=== PATIENT | female | born 1985 | race Caucasian/White ===

== ENCOUNTER 2022-11-11 15:51 | Emergency (ER) | payer OTHER, SELFPAY ==
--- OUTSIDE RECORDS SUMMARY | 2022-11-11 15:58 | XMS REPORT | Continuity of Care Document ---
:1985 Author Organization [facility] t Address [address] [place] [address] Care Team Providers Name Role Phone Nunu Morejon MD Primary Care Physician TIFF SIMPSON Attending Clinician Unavailable SHIV PROCTOR Attending Clinician Unavailable CHINEDU MYERS Attending Clinician Unavailable OLIVER CARR Attending Clinician Unavailable KEVIN HERNÁNDEZ Attending Clinician Unavailable LUCAS FORTE Attending Clinician Unavailable CASE VALDEZ Attending Clinician Unavailable SHAHNAZ GREENE Attending Clinician Unavailable WILLIE SIMENTAL Attending Clinician Unavailable Doctor Unassigned, [place] Attending Clinician Unavailable Case Valdez MD Attending Clinician [facility] Pain Procedure Attending Clinician Unavailable Nola Santoyo Attending Clinician Unavailable Shiv Proctor MD Attending Clinician EDGARDO BLACK Attending Clinician Unavailable TIFFANY GAGNON Attending Clinician Unavailable NAKUL VINSON Attending Clinician Unavailable Antonia Puri MD Attending Clinician Bossman PT, Nisa N Attending Clinician Unavailable Alis JOELRolandia Attending Clinician ALLEN MOORE Attending Clinician Unavailable ALLEN MOORE Attending Clinician Unavailable OLIVER CARR NP Attending Clinician Unavailable JEANA BAPTISTE D.O. Attending Clinician Unavailable SEFERINO BRYANT P.A. Attending Clinician Unavailable ABENA GRIFFIN M.D. Attending Clinician Unavailable OLAYINKA LU M.D. Attending Clinician Unavailable BELLO GONZÁLES M.D. Attending Clinician Unavailable SHIV PROCTOR Admitting Clinician Unavailable Nola Santoyo Admitting Clinician Unavailable CASE VALDEZ Admitting Clinician Unavailable Payers Payer Name Policy Type Policy Number Effective Date Expiration Date Shannon horne [facility] [id number] 2019 00:00:00 [facility] [id number] 2011 CHOICE MEDICAID 00:00:00 Problems Condition Condition Condition Status Onset Resolution Last Treating Co mments Source Name Details Category Date Date Treatment Clinician Date Elevated Elevated Disease Active 2018-10 [facility] C-reactive C-reactive 0-27 He alth protein protein 00:00: 00 Elevated Elevated Disease Active 2018-10 [facility] erythrocyt erythrocyt 0-27 He alth e e 00:00: sedimentat sedimentat 00 ion rate ion rate Seborrheic Seborrheic Disease Active U T dermatitis dermatitis 9-06 He alth of scalp of scalp 00:00: 00 Cervical Cervical Disease Active 2017-10 Unive rs radiculopa radiculopa 2-05 it y of thy [place] C7 [place] C7 [place] Spinal Spinal Disease Active 2017-10 Univers stenosis stenosis 2-05 ity of in in 00:00: [place] cervical cervical 00 Medica l region region Branch Cervical Cervical Disease Active 2017-10 Unive rs disc disc 2-05 ity of disorder disorder 00:00: [place] at C6-C7 at C6-C7 00 Medica l level with level with Br anch radiculopa radiculopa thy thy Blood Blood Disease Active 2017-10 [facility] pressure pressure 1-08 Health elevated elevated 00:00: without without 00 history of history of HTN HTN Cervical Cervical Disease Active 2017-10 UT radiculopa radiculopa 1-08 He alth thy thy 00:00: 00 GERD GERD Disease Active UT (gastroeso (gastroeso 07-17 He alth phageal phageal 00:00: reflux reflux 00 disease) disease) Herniated Herniated Disease Active UT cervical cervical 07-17 Health disc disc 00:00: without without 00 myelopathy myelopathy Adult ADHD Adult ADHD Disease Active U T 9 Health 00:00: 00 Anxiety Anxiety Disease Active UT and and 07-17 Health depression depression 00:00: 00 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 07-17 Heal th 00:00: 00 Abnormal Abnormal Disease Active Unive rs thyroid thyroid 06-17 ity of exam exam 00:00: [place] [facility] Abnormal Abnormal Disease Active Unive rs thyroid thyroid 06-17 ity of exam exam 00:00: [place] [facility] Hirsutism Hirsutism Disease Active Uni vers 8-27 ity of 00:00: [place] [facility] Irregular Irregular Disease Active Uni vers menstrual menstrual 06-17 ity of cycle cycle 00:00: [place] [facility] Patient Patient Disease Active [facility] desires desires 8 [place] of [place] History of History of Disease Active U nivers hypertensi hypertensi 8 it y of on on 00:00: [place] [facility] History of History of Disease Active U nivers depression depression 06-17 it y of 00:00: [place] [facility] History of History of Disease Active U nivers anxiety anxiety 06-17 ity of 00:00: [place] [facility] History of History of Disease Active U nivers ADHD ADHD 06-17 ity of 00:00: [place] [facility] Morbid Morbid Disease Active Univers obesity obesity 2- ity of 00:00: [place] [facility] IBS IBS Disease Active UT (irritable (irritable 05-17 He alth bowel bowel 00:00: syndrome) syndrome) 00 Diarrhea Diarrhea Problem Active UT Physici ans Constipati Constipati Problem Active U T on on Physici ans Abnormal Abnormal Problem Active UT urinalysis urinalysis Ph ysici ans Abdominal Abdominal Problem Active UT pain pain Physici ans Limb pain Limb pain Problem Active UT Physici ans Herniated Herniated Problem Active UT cervical cervical Physic i disc disc ans without without myelopathy myelopathy Lymphadeno Lymphadeno Problem Active U T stephanie, stephanie, Physici cervical cervical ans Meralgia Meralgia Problem Active UT parestheti parestheti Ph ysici ca of left ca of left an s side side Bulging of Bulging of Problem Active U T cervical cervical Physic i interverte interverte an s bral disc bral disc Back spasm Back spasm Problem Active U T Physici ans Need for Need for Problem Active UT influenza influenza Phys ici vaccinatio vaccinatio an s n n Contact Contact Problem Active UT dermatitis dermatitis Ph ysici ans Tinea Tinea Problem Active UT versicolor versicolor Ph ysici ans Obesity, Obesity, Problem Active UT Class I, Class I, Physic i BMI BMI ans 30-34.9 30-34.9 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 Physic i centrifugu centrifugu an s m m Allergies, Adverse Reactions, Alerts Allergy Allergy Status Severity Reaction(s) Onset Inactive Treating Comm ents Source Name Type Date Date Clinician Wheat Allergy Active 2020-10 UT Bran to 0-21 Health substanc 00:00: e 00 wheat DA Active [facility] 5-09 Clear 00:00: Gutierrez 00 [facility] Peanut Propensi Active Unknown - Unknown Univ ers ty to See comments 11-22 reaction it y of adverse 00:00: [place] reaction 00 Medical s Branch Wheat Propensi Active Rash Univers ty to 11-22 ity of adverse 00:00: [place] reaction 00 Medical s [place] PEANUT DRUG Active Unknown-Cmnt Univ ers INGREDI 11-22 ity of 00:00: [place] 00 Medical [place] WHEAT DRUG Active Diarrhea Univers INGREDI 11-22 ity of 00:00: [place] 00 Medical Branch Peanuts allergy Active UT to Physici substanc ans e Wheat allergy Active UT to Physici substanc ans e Family History Family Member Diagnosis Comments Start Date Stop Date Source natural son Family history of asthma [facility] Mother FHx: pancreatic cancer [facility] Mother Family history of malignant [facility] neoplasm Mother Family history of seizures [facility] Mother Family history of diabetes [facility] mellitus Father Family history of [facility] hypertension Father Family history of kidney [facility] disease Father Family history of [facility] cerebrovascular accident (CVA) Sister Family history of Anxiety [facility] Social History Social Habit Start Date Stop Date Quantity Comments Source Exposure to Not sure University of SARS-CoV-2 [place] [facility] (event) Branch History of Cigarette Smoker Universi ty of tobacco use [facility] Tobacco use and 2021-10-31 2021-10-31 Smokeless tobacco [facility] exposure 00:00:00 00:00:00 non-user Alcohol intake 2021-10-31 2021-10-31 Current drinker UT He alth 00:00:00 00:00:00 of alcohol (finding) History SDOH 2021-10-31 2021-10-31 2 [facility] Alcohol Frequency 00:00:00 00:00:00 History SDOH 2021-10-31 2021-10-31 1 [facility] Alcohol Std 00:00:00 00:00:00 Drinks History SDCO 2021-10-31 2021-10-31 1 [facility] Alcohol Binge 00:00:00 00:00:00 Alcohol Comment 2021-10-31 2021-10-31 socially [facility] 00:00:00 00:00:00 Tobacco Comment 2018-06-14 2018-06-14 stopped 10/2017, Uni versity of 00:00:00 00:00:00 using ecig [facility] Sex Assigned At [birth year] [facility] 00:00:00 00:00:00 Smoking Status Start Date Stop Date Source Former smoker [facility] Smoker. current status unknown [facility] Tobacco smoking consumption unknown [facility] Never smoked tobacco [facility] Medications Ordered Filled Start Stop Current Ordering Indication Dosage Frequency Signature Comments Components Source Medication Medication Date Date Medication? Clinician (SIG) Name Name fluticasone 2022- No [id number] 2{spray QD Administer UT (Flonase) 10-31 } 2 sprays Healt h 50 MCG/ACT 00:00: 05:59 into each nasal spray 00 :00 nostril 1 (one) time each day. Shake gently. Before first use, prime pump. After use, clean tip and replace cap. benzonatate 2021- No [id number] 200mg [id number] Take 1 UT (Tessalon) 10-31 [id number] capsule Health 200 MG 00:00: 05:59 3D (200 mg capsule 00 :00 total) by mouth 3 (three) times a day if needed for cough. Do not crush or chew. traZODone Yes 50mg Take 50 mg UT (Desyrel) 1-08 by mouth Health 50 MG 00:00: every tablet 00 night. Vyvanse 60 2020-10 Yes 60mg Take 60 mg U T MG capsule 1-30 by mouth 1 Hea lth 00:00: (one) time 00 each day in the morning. LORazepam 2020-10 Yes 2mg QD Take 2 mg UT (Ativan) 2 1-30 by mouth 1 Hea lth MG tablet 00:00: (one) time 00 each day. esomeprazol 2020-10 Yes UT e (NexIUM 0-21 Health 24HR) 20 MG 16:08: DR capsule 08 lisdexamfet 2020-10 Yes UT amine 0-21 Health (Vyvanse) 16:08: 10 MG 08 capsule esomeprazol 2020-10 Yes UT e (NexIUM 0-21 Health 24HR) 20 MG 16:08: DR capsule 08 lisdexamfet 2020-10 Yes UT amine 0-21 Health (Vyvanse) 16:08: 10 MG 08 capsule ondansetron Yes UT ODT 9-29 Health (Zofran-ODT 00:00: ) 4 MG 00 disintegrat ing tablet gabapentin Yes UT (Neurontin) 9-29 Health 300 MG 00:00: capsule 00 methocarbam Yes UT ol 6-30 Health (Robaxin) 00:00: 500 MG 00 tablet gabapentin Yes UT (Neurontin) 6-30 Health 400 MG 00:00: capsule 00 GABAPENTIN Yes [id number] TAKE ONE Univers 400 mg 6-30 9102 CAPSULE BY ity of capsule 00:00: MOUTH [place] 00 THREE Medical TIMES A Branch DAY GABAPENTIN Yes [id number] TAKE ONE Univers 400 mg 6-30 9102 CAPSULE BY ity of capsule 00:00: MOUTH [place] 00 THREE Medical TIMES A Branch DAY acetaminoph Yes UT en-codeine 4-21 Health (Tylenol 00:00: #3) 300-30 00 MG tablet METHOCARBAM Yes [id number] TAKE 1 AND Univers OL 500 mg 4-21 9102 1/2 TABLET ity of tablet 00:00: BY MOUTH [place] [address] THREE Medical TIMES A Branch DAY NEEDED FOR PAIN (SCALE 7-10) METHOCARBAM 1-0 Yes [id number] TAKE 1 AND Univers OL 500 mg 4-21 9102 1/2 TABLET ity of tablet 00:00: BY MOUTH [place] THREE Medical TIMES A Branch DAY NEEDED FOR PAIN (SCALE 7-10) METHOCARBAM 1-0 Yes [id number] TAKE 1 AND Univers OL 500 mg 4-21 9102 1/2 TABLET ity of tablet 00:00: BY MOUTH [place] THREE Medical TIMES A Branch DAY NEEDED FOR PAIN (SCALE 7-10) METHOCARBAM 2020-0 Yes [id number] TAKE 1 AND Univers OL 500 mg 4-21 9102 1/2 TABLET ity of tablet 00:00: BY MOUTH [place] THREE Medical TIMES A Branch DAY NEEDED FOR PAIN (SCALE 7-10) METHOCARBAM 2020-0 Yes [id number] TAKE 1 AND Univers OL 500 mg 4-21 9102 1/2 TABLET ity of tablet 00:00: BY MOUTH [place] THREE Medical TIMES A Branch DAY NEEDED FOR PAIN (SCALE 7-10) METHOCARBAM 2020-0 Yes [id number] TAKE 1 AND Univers OL 500 mg 4-21 9102 1/2 TABLET ity of tablet 00:00: BY MOUTH [place] THREE Medical TIMES A Branch DAY NEEDED FOR PAIN (SCALE 7-10) METHOCARBAM 1-0 Yes [id number] TAKE 1 AND Univers OL 500 mg 4-21 9102 1/2 TABLET ity of tablet 00:00: BY MOUTH [place] [address] THREE Medical TIMES A Branch DAY NEEDED FOR PAIN (SCALE 7-10) acetaminoph 2020-2020- No 2745 1{tbl} Take 1 U nivers en-codeine 02-09 tablet by ity of (TYLENOL-CO 00:00: 04:59 mouth [facility] shannon DENICK #3) 00 :00 every 6 Medical 300-30 mg (six) Branch tablet hours as needed for Pain (scale 7-10) for up to 7 days. Indication s: chronic pain acetaminoph 2020-0 2020- No 2745 1{tbl} Take 1 U nivers en-codeine 02-09 tablet by ity of (TYLENOL-CO 00:00: 04:59 [place] DEINE #3) 00 :00 every 6 Medical 300-30 mg (six) Branch tablet hours as needed for Pain (scale 7-10) for up to 7 days. Indication s: chronic pain acetaminoph 2020- No 2745 1{tbl} Take 1 U nivers en-codeine 02-09 tablet by ity of (TYLENOL-CO 00:00: 04:59 mouth [place] DEINE #3) 00 :00 every 6 Medical 300-30 mg (six) Branch tablet hours as needed for Pain (scale 7-10) for up to 7 days. Indication s: chronic pain lidocaine 2019-10- No 10mL Univers 1% (PF) 12-14 ity of (XYLOCAINE) 16:15: 15:19 [place] injection 00 :00 Medical 10 mL Branch iohexoL 2019-10- No 3mL Univers (OMNIPAQUE 12-14 ity of 300-50 mL)) 16:15: 15:18 [place] injection 3 00 :00 Medical mL Branch methylPREDN 2019-10- No 40mg Unive rs ISolone 12-14 ity of acetate 16:15: 15:19 [place] (DEPO-MEDRO 00 :00 Medical L) Branch injection 40 mg NaCl 0.9% 2019-10- No 4mL Univers (NS) 12-14 ity of injection 4 16:15: 15:19 [place] mL 00 :00 Medical Branch NaCl 0.9% 2019-10- No 4mL 4 mL, Univer s (NS) 12-14 Infiltrati ity of injection 4 16:15: 15:19 on, ONCE, [place] mL 00 :00 1 dose, Medical Wed Branch 10/13/20 at 1015, Routine methylPREDN 2019-10- No 40mg 40 mg, Uni vers ISolone 12-14 Intramuscu ity o f acetate 16:15: 15:19 lar, ONCE, [place] (DEPO-MEDRO 00 :00 1 dose, Medic al L) Wed Branch injection 10/13/20 40 mg at 1015, Routine iohexoL 2019-10- No 3mL 3 mL, Univers (OMNIPAQUE -13 10- Injection, it y of 300-50 mL)) 16:15: 15:18 ONCE, 1 [place] 3 [place] :[place] dose, Wed Med ical mL 10/13/20 Branch at 1015, Routine lidocaine 2019- 2020- No 10mL 10 mL, Unive rs 1% (PF) 12-14- Infiltrati ity o f (XYLOCAINE) 16:15: 15:19 on, ONCE, [place] injection 00 :00 1 dose, Medical 10 mL Wed Branch 10/13/20 at 1015, Routine lidocaine 2019- 2020- No 10mL Univers 1% (PF) 12-14 ity of (XYLOCAINE) 16:15: 15:19 [place] injection 00 :00 Medical 10 mL Branch iohexoL 2019- 2020- No 3mL Univers (OMNIPAQUE 12-14- ity of 300-50 mL)) 16:15: 15:18 [place] injection 3 00 :00 Medical mL Branch methylPREDN 2019-10 2020- No 40mg Unive rs ISolone 12-14 ity of acetate 16:15: 15:19 [place] (DEPO-MEDRO 00 :00 Medical L) Branch injection 40 mg NaCl 0.9% 2019-10 2020- No 4mL Univers (NS) 12-14 ity of injection 4 16:15: 15:19 [place] mL 00 :00 Medical Branch NaCl 0.9% 2019-10 2020- No 4mL 4 mL, Univer s (NS) 12-14 Infiltrati ity of injection 4 16:15: 15:19 on, ONCE, [place] mL 00 :00 1 dose, Medical Wed Branch 10/13/20 at 1015, Routine methylPREDN 2019-10 2020- No 40mg 40 mg, Uni vers ISolone 12-14 Intramuscu ity o f acetate 16:15: 15:19 lar, ONCE, [place] (DEPO-MEDRO 00 :00 1 dose, Medic al L) Wed Branch injection 10/13/20 40 mg at 1015, Routine iohexoL 2019- 2020- No 3mL 3 mL, Univers (OMNIPAQUE 12-14- Injection, it y of 300-50 mL)) 16:15: 15:18 ONCE, 1 [place] 3 00 :[place] dose, Wed Med ical mL 10/13/20 Branch at 1015, Routine lidocaine 2019- 2020- No 10mL 10 mL, Unive rs 1% (PF) 12-14 Infiltrati ity o f (XYLOCAINE) 16:15: 15:19 on, ONCE, [place] injection 00 :00 1 dose, Medical 10 mL Wed Branch 10/13/20 at 1015, Routine gabapentin 2020-1 Yes [id number] 400mg Take 1 Univers 400 mg 2-02 9102 capsule by ity of capsule 00:00: mouth 3 [place] (three) Medical times Branch daily. gabapentin 2020-1 Yes [id number] 400mg Take 1 Univers 400 mg 2-02 9102 capsule by ity of capsule 00:00: mouth 3 (three) Medical times Branch daily. gabapentin 2020-1 Yes [id number] 400mg Take 1 Univers 400 mg 2-02 9102 capsule by ity of capsule 00:00: mouth 3 (three) Medical times Branch daily. gabapentin 2020-1 Yes [id number] 400mg Take 1 Univers 400 mg 2-02 9102 capsule by ity of capsule 00:00: mouth 3 [place] (three) Medical times Branch daily. gabapentin 2020-1 Yes [id number] 400mg Take 1 Univers 400 mg 2-02 9102 capsule by ity of capsule 00:00: mouth 3 (three) Medical times Branch daily. gabapentin 2020-1 Yes [id number] 400mg Take 1 Univers 400 mg 2-02 9102 capsule by ity of capsule 00:00: mouth 3 [place] (three) Medical times Branch daily. gabapentin 2020-1 Yes [id number] 400mg Take 1 Univers 400 mg 2-02 9102 capsule by ity of capsule 00:00: mouth 3 [place] (three) Medical times Branch daily. gabapentin 2020-1 Yes [id number] 400mg Take 1 Univers 400 mg 2-02 9102 capsule by ity of capsule 00:00: mouth 3 [place] (three) Medical times Branch daily. gabapentin 2020-1 Yes [id number] 400mg Take 1 Univers 400 mg 2-02 9102 capsule by ity of capsule 00:00: mouth 3 [place] 00 (three) Medical times Branch daily. gabapentin 2020-1 Yes [id number] 400mg Take 1 Univers 400 mg 2-02 9102 capsule by ity of capsule 00:00: mouth 3 [place] 00 (three) Medical times Branch daily. gabapentin 2020- Yes [id number] 400mg Take 1 Univers 400 mg 2-02 9102 capsule by ity of capsule 00:00: mouth 3 [place] 00 (three) Medical times Branch daily. gabapentin 2020-1 Yes [id number] 400mg Take 1 Univers 400 mg 2-02 9102 capsule by ity of capsule 00:00: mouth 3 [place] 00 (three) Medical times Branch daily. gabapentin 2019-2020- No [id number] 400mg Take 1 Univers 400 mg 2-02 - 9102 capsule by ity of capsule 00:00: 00:00 mouth 3 [place] 00 :00 (three) Medical times Branch daily. GABAPENTIN 2020-0 Yes [id number] TAKE ONE Univers 400 mg 9-21 9102 CAPSULE BY ity of capsule 00:00: MOUTH [place] 00 THREE Medical TIMES A Branch DAY GABAPENTIN 2020-0 Yes [id number] TAKE ONE Univers 400 mg 9-21 9102 CAPSULE BY ity of capsule 00:00: MOUTH [place] 00 THREE Medical TIMES A Branch DAY GABAPENTIN 2020-0 2020- No [id number] TAKE ONE Univers 400 mg 9-21 12- 9102 CAPSULE BY ity of capsule 00:00: 00:00 MOUTH [place] 00 :00 THREE Medical TIMES A Branch DAY GABAPENTIN 2020-0 2020- No [id number] TAKE ONE Univers 400 mg 9-21 12- 9102 CAPSULE BY ity of capsule 00:00: 00:00 MOUTH [place] 00 :00 THREE Medical TIMES A Branch DAY traZODone 2020-0 Yes Univers 50 mg 9-03 ity of tablet 00:00: [place] 00 Medical Branch traZODone 2020-0 Yes Univers 50 mg 9-03 ity of tablet 00:00: [place] 00 Medical Branch traZODone 2020-0 Yes Univers 50 mg 9-03 ity of tablet 00:00: [place] 00 Medical Branch traZODone 2020-0 Yes Univers 50 mg 9-03 ity of tablet 00:00: [place] 00 Medical Branch traZODone 2020-0 Yes Univers 50 mg 9-03 ity of tablet 00:00: [place] 00 Medical Branch traZODone 2020-0 Yes Univers 50 mg 9-03 ity of tablet 00:00: [place] 00 Medical Branch traZODone 2020-0 Yes Univers 50 mg 9-03 ity of tablet 00:00: [place] 00 Medical Branch traZODone 2020-0 Yes Univers 50 mg 9-03 ity of tablet 00:00: [place] [facility] traZODone 2020-0 Yes Univers 50 mg 9-03 ity of tablet 00:00: [place] [facility] traZODone 2020-0 Yes Univers 50 mg 9-03 ity of tablet 00:00: [place] [facility] traZODone 2020-0 Yes Univers 50 mg 9-03 ity of tablet 00:00: [place] [facility] traZODone 2020-0 Yes Univers 50 mg 9-03 ity of tablet 00:00: [place] [facility] traZODone 2020-0 Yes Univers 50 mg 9-03 ity of tablet 00:00: [place] [facility] traZODone 2020-0 Yes Univers 50 mg 9-03 ity of tablet 00:00: [place] [facility] traZODone 2020-0 Yes Univers 50 mg 9-03 ity of tablet 00:00: [place] [facility] tiZANidine 2020-0 Yes [id number] 2mg Take 1 Univers 2 mg 8-05 capsule by ity of capsule 00:00: mouth 3 [place] [facility]) Medical times [place] daily. tiZANidine 2020-0 Yes [id number] 2mg Take 1 Univers 2 mg 8-05 capsule by ity of capsule 00:00: mouth 3 [place] [facility]) Medical times [place] daily. tiZANidine 2020-0 Yes [id number] 2mg Take 1 Univers 2 mg 8-05 capsule by ity of capsule 00:00: mouth 3 [place] [facility]) Medical times [place] daily. tiZANidine 2020-0 Yes [id number] 2mg Take 1 Univers 2 mg 8-05 capsule by ity of capsule 00:00: mouth 3 [place] [facility]) Medical times [place] daily. tiZANidine 2020-0 Yes [id number] 2mg Take 1 Univers 2 mg 8-05 capsule by ity of capsule 00:00: mouth 3 [place] [facility]) Medical times Branch daily. tiZANidine 2020-0 Yes [id number] 2mg Take 1 Univers 2 mg 8-05 capsule by ity of capsule 00:00: mouth 3 [place] [facility]) Medical times Branch daily. tiZANidine 2020-0 Yes [id number] 2mg Take 1 Univers 2 mg 8-05 capsule by ity of capsule 00:00: mouth (three) Medical times Branch daily. tiZANidine 2020-0 Yes [id number] 2mg Take 1 Univers 2 mg 8-05 capsule by ity of capsule 00:00: mouth 3 (three) Medical times Branch daily. tiZANidine 2020-0 Yes [id number] 2mg Take 1 Univers 2 mg 8-05 capsule by ity of capsule 00:00: mouth (three) Medical times Branch daily. tiZANidine 2020-0 Yes [id number] 2mg Take 1 Univers 2 mg 8-05 capsule by ity of capsule 00:00: mouth (three) Medical times Branch daily. tiZANidine 2020-0 Yes [id number] 2mg Take 1 Univers 2 mg 8-05 capsule by ity of capsule 00:00: mouth (three) Medical times Branch daily. tiZANidine 2020-0 Yes [id number] 2mg Take 1 Univers 2 mg 8-05 capsule by ity of capsule 00:00: [place] (three) Medical times Branch daily. tiZANidine 2020-0 Yes [id number] 2mg Take 1 Univers 2 mg 8-05 capsule by ity of capsule 00:00: mouth (three) Medical times Branch daily. tiZANidine 2020-0 Yes [id number] 2mg Take 1 Univers 2 mg 8-05 capsule by ity of capsule 00:00: mouth (three) Medical times Branch daily. tiZANidine 2020-0 Yes [id number] 2mg Take 1 Univers 2 mg 8-05 capsule by ity of capsule 00:00: mouth (three) Medical times Branch daily. tiZANidine 2020-0 Yes [id number] 2mg Take 1 Univers 2 mg 8-05 capsule by ity of capsule 00:00: mouth 3 (three) Medical times Branch daily. tiZANidine 2020-0 Yes [id number] 2mg Take 1 Univers 2 mg 8-05 capsule by ity of capsule 00:00: mouth 3 (three) Medical times Branch daily. tiZANidine 2020-0 Yes [id number] 2mg Take 1 Univers 2 mg 8-05 capsule by ity of capsule 00:00: mouth 3 00 (three) Medical times Branch daily. tiZANidine 2020-0 Yes [id number] 2mg Take 1 Univers 2 mg 8-05 capsule by ity of capsule 00:00: mouth 3 (three) Medical times Branch daily. methylPREDN 2020-0 2020- No 40mg Unive rs ISolone 6-25 06-25 ity of acetate 15:15: 14:40 [place] (DEPO-MEDRO 00 :00 Medical L) Branch injection 40 mg iohexol 2020-0 2020- No 3mL Univers (OMNIPAQUE 6-25 06-25 ity of 300-50 mL)) 15:15: 14:40 [place] injection 3 00 :00 Medical mL Branch NaCl 0.9% 2020-0 2020- No 4mL Univers (NS) -15 04-25 ity of injection 4 15:15: 14:40 [place] mL 00 :00 Medical Branch NaCl 0.9% 2020-0 2020- No 4mL 4 mL, Univer s (NS) 04-15-25 Infiltrati ity of injection 4 15:15: 14:40 on, ONCE, [place] mL 00 :00 1 dose, Medical [place] Branch 04/15/20 at 1015, Routine iohexol 2020-0 2020- No 3mL 3 mL, Univers (OMNIPAQUE 6-25 06-25 Injection, it y of 300-50 mL)) 15:15: 14:40 [place]CE, 1 [place] injection 3 00 :00 dose, [place] Med ical mL 04/15/ at Branch 1015, Routine methylPREDN 2020-0 2020- No 40mg 40 mg, Uni vers ISolone -25 -25 Intramuscu ity o f acetate 15:15: 14:40 lar, ONCE, [facility] (DEPO-MEDRO 00 :00 1 dose, Medic al L) [place] Branch injection 04/15/ at 40 mg 1015, Routine methylPREDN 2020-0 2020- No 40mg Unive rs ISolone 6-25 06-25 ity of acetate 15:15: 14:40 [place] (DEPO-MEDRO 00 :00 Medical L) Branch injection 40 mg iohexol 2020-0 2020- No 3mL Univers (OMNIPAQUE 6-25 06-25 ity of 300-50 mL)) 15:15: 14:40 [place] injection 3 00 :00 Medical mL Branch NaCl 0.9% 2019-0 2020- No 4mL Univers (NS) 04-15 ity of injection 4 15:15: 14:40 [place] mL 00 :00 Medical Branch NaCl 0.9% 2019-0 2020- No 4mL 4 mL, Univer s (NS) 04-15 Infiltrati ity of injection 4 15:15: 14:40 on, ONCE, [place] mL 00 :00 1 dose, Medical [place] Branch 04/15/20 at 1015, Routine iohexol 2019-2019- No 3mL 3 mL, Univers (OMNIPAQUE 04-15 Injection, it y of 300-50 mL)) 15:15: 14:40 [place]CE, 1 [place] injection 3 00 :00 dose, [place] Med ical mL 04/15/20 at Branch 1015, Routine methylPREDN 2019-2019- No 40mg 40 mg, Uni vers ISolone 04-15 Intramuscu ity o f acetate 15:15: 14:40 lar, ONCE, [place] (DEPO-MEDRO 00 :00 1 dose, Medic al L) [place] Branch injection 04/15/20 at 40 mg 1015, Routine lidocaine 2019-0 2020- No 10mL Univers 1% (PF) 04-15- ity of (XYLOCAINE) 15:00: 14:40 [place] injection 00 :00 Medical 10 mL Branch lidocaine 2019-0 2020- No 10mL 10 mL, [facility] rs 1% (PF) 04-15 Infiltrati ity o f (XYLOCAINE) 15:00: 14:40 on, ONCE, [place] injection 00 :00 1 dose, Medical 10 mL [place] 04/15/20 at 1000, Routine lidocaine 2020-0 2020- No 10mL [facility] 1% (PF) 04-15-25 ity of (XYLOCAINE) 15:00: 14:40 [place] injection 00 :00 Medical 10 mL Branch lidocaine 2020-0 2020- No 10mL 10 mL, [facility] rs 1% (PF) 04-15-25 Infiltrati ity o f (XYLOCAINE) 15:00: 14:40 on, ONCE, [place] injection 00 :00 1 dose, Medical 10 mL [place] 04/15/20 at 1000, Routine gabapentin 2020-0 Yes [id number] 400mg Take 1 [facility] 400 mg 6- 9102 capsule by ity of capsule 00:00: mouth (three) Medical times Branch daily. methocarbam 2020-0 Yes [id number] 750mg Take 1.5 [facility] ol 500 mg 6- 9102 tablets by ity of tablet 00:00: mouth (three) Medical times Branch daily as needed for Pain (scale 7-10). diazePAM 5 2020-0 Yes [id number] 5mg Take 1 [facility] mg tablet 6- 9102 tablet by ity o f 00:00: mouth [place] 00 every 30 Medical (thirty) Branch minutes as needed (for pain clinic procedure procedure) for up to 2 doses. gabapentin 2020-0 Yes [id number] 400mg Take 1 [facility] 400 mg 6- 9102 capsule by ity of capsule 00:00: mouth (three) Medical times Branch daily. methocarbam 2020-0 Yes [id number] 750mg Take 1.5 [facility] ol 500 mg 6- 9102 tablets by ity of tablet 00:00: mouth (three) Medical times Branch daily as needed for Pain (scale 7-10). diazePAM 5 2020-0 Yes [id number] 5mg Take 1 [facility] mg tablet - 9102 tablet by ity o f 00:00: mouth [place] 00 every 30 Medical (thirty) Branch minutes as needed (for pain clinic procedure procedure) for up to 2 doses. gabapentin 2020-0 Yes [id number] 400mg Take 1 [facility] 400 mg 6- 9102 capsule by ity of capsule 00:00: mouth (three) Medical times Branch daily. methocarbam 2020-0 Yes [id number] 750mg Take 1.5 [facility] ol 500 mg 6- 9102 tablets by ity of tablet 00:00: mouth (three) Medical times Branch daily as needed for Pain (scale 7-10). diazePAM 5 2020-0 Yes [id number] 5mg Take 1 [facility] mg tablet 6- 9102 tablet by ity o f 00:00: mouth [place] 00 every 30 Medical (thirty) Branch minutes as needed (for pain clinic procedure procedure) for up to 2 doses. gabapentin 2020-0 Yes [id number] 400mg Take 1 [facility] 400 mg 6- 9102 capsule by ity of capsule 00:00: mouth (three) Medical times Branch daily. methocarbam 2020-0 Yes [id number] 750mg Take 1.5 [facility] ol 500 mg 6- 9102 tablets by ity of tablet 00:00: mouth (three) Medical times Branch daily as needed for Pain (scale 7-10). diazePAM 5 2020-0 Yes [id number] 5mg Take 1 [facility] mg tablet 6- 9102 tablet by ity o f 00:00: mouth [place] 00 every 30 Medical (thirty) Branch minutes as needed (for pain clinic procedure procedure) for up to 2 doses. gabapentin 2020-0 Yes [id number] 400mg Take 1 [facility] 400 mg 6- 9102 capsule by ity of capsule 00:00: mouth (three) Medical times Branch daily. methocarbam 2020-0 Yes [id number] 750mg Take 1.5 [facility] ol 500 mg 6- 9102 tablets by ity of tablet 00:00: mouth (three) Medical times Branch daily as needed for Pain (scale 7-10). diazePAM 5 2020-0 Yes [id number] 5mg Take 1 [facility] mg tablet 6- 9102 tablet by ity o f 00:00: mouth [place] 00 every 30 Medical (thirty) Branch minutes as needed (for pain clinic procedure procedure) for up to 2 doses. gabapentin 2020-0 Yes [id number] 400mg Take 1 [facility] 400 mg 6- 9102 capsule by ity of capsule 00:00: mouth (three) Medical times Branch daily. methocarbam 2020-0 Yes [id number] 750mg Take 1.5 [facility] 500 mg 6- 9102 tablets by ity of tablet 00:00: mouth (three) Medical times Branch daily as needed for Pain (scale 7-10). diazePAM 5 2020-0 Yes [id number] 5mg Take 1 [facility] mg tablet 6- 9102 tablet by ity o f 00:00: mouth [place] 00 every 30 Medical (thirty) Branch minutes as needed (for pain clinic procedure procedure) for up to 2 doses. gabapentin 2020-0 Yes [id number] 400mg Take 1 [facility] 400 mg 6- 9102 capsule by ity of capsule 00:00: mouth (three) Medical times Branch daily. methocarbam 2020-0 Yes [id number] 750mg Take 1.5 [facility] 500 mg 6- 9102 tablets by ity of tablet 00:00: mouth (three) Medical times Branch daily as needed for Pain (scale 7-10). diazePAM 5 2020-0 Yes [id number] 5mg Take 1 [facility] mg tablet 6- 9102 tablet by ity o f 00:00: mouth 00 every 30 Medical (thirty) Branch minutes as needed (for pain clinic procedure procedure) for up to 2 doses. gabapentin 2020-0 Yes [id number] 400mg Take 1 [facility] 400 mg 6- 9102 capsule by ity of capsule 00:00: mouth (three) Medical times Branch daily. methocarbam 2020-0 Yes [id number] 750mg Take 1.5 [facility] 500 mg 6- 9102 tablets by ity of tablet 00:00: mouth (three) Medical times Branch daily as needed for Pain (scale 7-10). diazePAM 5 2020-0 Yes [id number] 5mg Take 1 [facility] mg tablet 6- 9102 tablet by ity o f 00:00: mouth every 30 Medical (thirty) Branch minutes as needed (for pain clinic procedure procedure) for up to 2 doses. gabapentin 2020-0 Yes [id number] 400mg Take 1 [facility] 400 mg 6- 9102 capsule by ity of capsule 00:00: mouth (three) Medical times Branch daily. methocarbam 2020-0 Yes [id number] 750mg Take 1.5 [facility] 500 mg 6- 9102 tablets by ity of tablet 00:00: mouth (three) Medical times Branch daily as needed for Pain (scale 7-10). diazePAM 5 2020-0 Yes [id number] 5mg Take 1 [facility] mg tablet 6- 9102 tablet by ity o f 00:00: mouth every 30 Medical (thirty) Branch minutes as needed (for pain clinic procedure procedure) for up to 2 doses. gabapentin 2020-0 Yes [id number] 400mg Take 1 [facility] 400 mg 6- 9102 capsule by ity of capsule 00:00: mouth (three) Medical times Branch daily. methocarbam 2020-0 Yes [id number] 750mg Take 1.5 [facility] ol 500 mg 6- 9102 tablets by ity of tablet 00:00: mouth (three) Medical times Branch daily as needed for Pain (scale 7-10). diazePAM 5 2020-0 Yes [id number] 5mg Take 1 [facility] mg tablet - 9102 tablet by ity o f 00:00: mouth [place] 00 every 30 Medical (thirty) Branch minutes as needed (for pain clinic procedure procedure) for up to 2 doses. gabapentin 2020-0 Yes [id number] 400mg Take 1 [facility] 400 mg - 9102 capsule by ity of capsule 00:00: mouth (three) Medical times Branch daily. methocarbam 2020-0 Yes [id number] 750mg Take 1.5 [facility] ol 500 mg 6- 9102 tablets by ity of tablet 00:00: mouth (three) Medical times Branch daily as needed for Pain (scale 7-10). diazePAM 5 2020-0 Yes [id number] 5mg Take 1 [facility] mg tablet - 9102 tablet by ity o f 00:00: mouth [place] 00 every 30 Medical (thirty) Branch minutes as needed (for pain clinic procedure procedure) for up to 2 doses. methocarbam 2020-0 Yes [id number] 750mg Take 1.5 [facility] ol 500 mg 6- 9102 tablets by ity of tablet 00:00: mouth (three) Medical times Branch daily as needed for Pain (scale 7-10). diazePAM 5 2020-0 Yes [id number] 5mg Take 1 [facility] mg tablet - 9102 tablet by ity o f 00:00: mouth [place] 00 every 30 Medical (thirty) Branch minutes as needed (for pain clinic procedure procedure) for up to 2 doses. methocarbam 2020-0 Yes [id number] 750mg Take 1.5 [facility] ol 500 mg 6- 9102 tablets by ity of tablet 00:00: mouth (three) Medical times Branch daily as needed for Pain (scale 7-10). diazePAM 5 2020-0 Yes [id number] 5mg Take 1 [facility] mg tablet - 9102 tablet by ity o f 00:00: mouth [place] 00 every 30 Medical (thirty) Branch minutes as needed (for pain clinic procedure procedure) for up to 2 doses. methocarbam 2020-0 Yes [id number] 750mg Take 1.5 [facility] ol 500 mg 6- 9102 tablets by ity of tablet 00:00: mouth 3 [place] (three) Medical times Branch daily as needed for Pain (scale 7-10). diazePAM 5 2020-0 Yes [id number] 5mg Take 1 [facility] mg tablet 6- 9102 tablet by ity o f 00:00: mouth [place] 00 every 30 Medical (thirty) Branch minutes as needed (for pain clinic procedure procedure) for up to 2 doses. methocarbam 2020-0 Yes [id number] 750mg Take 1.5 [facility] ol 500 mg 6- 9102 tablets by ity of tablet 00:00: mouth 3 [place] (three) Medical times Branch daily as needed for Pain (scale 7-10). diazePAM 5 2020-0 Yes [id number] 5mg Take 1 [facility] mg tablet - 9102 tablet by ity o f 00:00: mouth [place] 00 every 30 Medical (thirty) Branch minutes as needed (for pain clinic procedure procedure) for up to 2 doses. methocarbam 2020-0 Yes [id number] 750mg Take 1.5 [facility] ol 500 mg 6- 9102 tablets by ity of tablet 00:00: mouth 3 [place] 00 (three) Medical times Branch daily as needed for Pain (scale 7-10). diazePAM 5 2020-0 Yes [id number] 5mg Take 1 [facility] mg tablet - 9102 tablet by ity o f 00:00: mouth [place] 00 every 30 Medical (thirty) Branch minutes as needed (for pain clinic procedure procedure) for up to 2 doses. methocarbam 2020-0 Yes [id number] 750mg Take 1.5 [facility] ol 500 mg 6- 9102 tablets by ity of tablet 00:00: mouth 3 [place] 00 (three) Medical times Branch daily as needed for Pain (scale 7-10). diazePAM 5 2020-0 Yes [id number] 5mg Take 1 [facility] mg tablet - 9102 tablet by ity o f 00:00: mouth [place] 00 every 30 Medical (thirty) Branch minutes as needed (for pain clinic procedure procedure) for up to 2 doses. methocarbam 2020-0 Yes [id number] 750mg Take 1.5 [facility] ol 500 mg 6- 9102 tablets by ity of tablet 00:00: mouth 3 [place] 00 (three) Medical times Branch daily as needed for Pain (scale 7-10). diazePAM 5 2020-0 Yes [id number] 5mg Take 1 [facility] mg tablet 03-22 9102 tablet by ity o f 00:00: mouth [place] 00 every 30 Medical (thirty) Branch minutes as needed (for pain clinic procedure procedure) for up to 2 doses. methocarbam 2020-0 Yes [id number] 750mg Take 1.5 [facility] ol 500 mg 6- 9102 tablets by ity of tablet 00:00: mouth 3 [place] 00 (three) Medical times Branch daily as needed for Pain (scale 7-10). diazePAM 5 2020-0 Yes [id number] 5mg Take 1 [facility] mg tablet 03-22 9102 tablet by ity o f 00:00: mouth [place] 00 every 30 Medical (thirty) Branch minutes as needed (for pain clinic procedure procedure) for up to 2 doses. methocarbam 2020-0 Yes [id number] 750mg Take 1.5 [facility] ol 500 mg 6- 9102 tablets by ity of tablet 00:00: mouth 3 [place] 00 (three) Medical times Branch daily as needed for Pain (scale 7-10). diazePAM 5 2020-0 Yes [id number] 5mg Take 1 [facility] mg tablet 03-22 9102 tablet by ity o f 00:00: mouth [place] 00 every 30 Medical (thirty) Branch minutes as needed (for pain clinic procedure procedure) for up to 2 doses. diazePAM 5 2020-0 Yes [id number] 5mg Take 1 [facility] mg tablet 03-22 9102 tablet by ity o f 00:00: mouth [place] 00 every 30 Medical (thirty) Branch minutes as needed (for pain clinic procedure procedure) for up to 2 doses. diazePAM 5 2020-0 Yes [id number] 5mg Take 1 [facility] mg tablet 03-22 9102 tablet by ity o f 00:00: mouth [place] 00 every 30 Medical (thirty) Branch minutes as needed (for pain clinic procedure procedure) for up to 2 doses. diazePAM 5 2020-0 Yes [id number] 5mg Take 1 [facility] mg tablet - 9102 tablet by ity o f 00:00: mouth [place] 00 every 30 Medical (thirty) Branch minutes as needed (for pain clinic procedure procedure) for up to 2 doses. diazePAM 5 2020-0 Yes [id number] 5mg Take 1 [facility] mg tablet 03-22 9102 tablet by ity o f 00:00: mouth [place] 00 every 30 Medical (thirty) Branch minutes as needed (for pain clinic procedure procedure) for up to 2 doses. diazePAM 5 2020-0 Yes [id number] 5mg Take 1 [facility] mg tablet 03-22 9102 tablet by ity o f 00:00: mouth [place] 00 every 30 Medical (thirty) Branch minutes as needed (for pain clinic procedure procedure) for up to 2 doses. diazePAM 5 2020-0 Yes [id number] 5mg Take 1 [facility] mg tablet 03-22 9102 tablet by ity o f 00:00: mouth [place] 00 every 30 Medical (thirty) Branch minutes as needed (for pain clinic procedure procedure) for up to 2 doses. diazePAM 5 2020-0 Yes [id number] 5mg Take 1 [facility] mg tablet 03-22 9102 tablet by ity o f 00:00: mouth [place] 00 every 30 Medical (thirty) Branch minutes as needed (for pain clinic procedure procedure) for up to 2 doses. methocarbam 2019-0 2020- No [id number] 750mg Take 1.5 [facility] ol 500 mg 03-22 9102 tablets by ity of tablet 00:00: 00:00 mouth 3 [place] 00 :00 (three) Medical times Branch daily as needed for Pain (scale 7-10). gabapentin 2020-0 2020- No [id number] 400mg Take 1 [facility] 400 mg 03-22 9102 capsule by ity of capsule 00:00: 00:00 mouth 3 [place] 00 :00 (three) Medical times Branch daily. acetaminoph 2020-0 Yes [id number] 1{tbl} Take 1 [facility] en-codeine 4-29 tablet by ity of 300-30 mg 00:00: mouth [place] tablet 00 every 6 Medical (six) Branch hours as needed for Pain (scale 7-10). gabapentin 2020-0 Yes [id number] 200mg Take 2 [facility] 100 mg 4-29 capsules [facility] capsule 00:00: by mouth 3 [place] 00 (three) [facility] times [facility] daily. acetaminoph 2020-0 Yes [id number] 1{tbl} Take 1 [facility] en-codeine 4-29 tablet by ity of 300-30 mg 00:00: mouth [place] tablet 00 every 6 Medical (six) Branch hours as needed for Pain (scale 7-10). gabapentin 2020-0 Yes [id number] 200mg Take 2 [facility] 100 mg 4-29 capsules [facility] capsule 00:00: by mouth 3 [place] 00 (three) [facility] times [facility] daily. acetaminoph 2020-0 Yes [id number] 1{tbl} Take 1 [facility] en-codeine 4-29 tablet by ity of 300-30 mg 00:00: mouth [place] tablet 00 every 6 Medical (six) Branch hours as needed for Pain (scale 7-10). gabapentin 2020-0 Yes [id number] 200mg Take 2 [facility] 100 mg 4-29 capsules [facility] of capsule 00:00: by mouth 3 [place] 00 (three) Medical times Branch daily. acetaminoph 2020-0 Yes [id number] 1{tbl} Take 1 [facility] en-codeine 4-29 tablet by ity of 300-30 mg 00:00: mouth [place] tablet 00 every 6 Medical (six) Branch hours as needed for Pain (scale 7-10). gabapentin 2020-0 Yes [id number] 200mg Take 2 [facility] 100 mg 4-29 capsules [facility] of capsule 00:00: by mouth 3 [place] 00 (three) Medical times Branch daily. acetaminoph 2020-0 Yes [id number] 1{tbl} Take 1 [facility] en-codeine 4-29 tablet by ity of 300-30 mg 00:00: mouth [place] tablet 00 every 6 Medical (six) Branch hours as needed for Pain (scale 7-10). gabapentin 2020-0 Yes [id number] 200mg Take 2 [facility] 100 mg 4-29 capsules [facility] of capsule 00:00: by mouth 3 [place] 00 (three) Medical times Branch daily. acetaminoph 2020-0 Yes [id number] 1{tbl} Take 1 [facility] en-codeine 4-29 tablet by ity of 300-30 mg 00:00: mouth [place] tablet 00 every 6 Medical (six) Branch hours as needed for Pain (scale 7-10). gabapentin 2020-0 Yes [id number] 200mg Take 2 [facility] 100 mg 4-29 capsules [facility] of capsule 00:00: by mouth 3 [place] 00 (three) Medical times Branch daily. acetaminoph 2020-0 Yes [id number] 1{tbl} Take 1 [facility] en-codeine 4-29 tablet by ity of 300-30 mg 00:00: mouth [place] tablet 00 every 6 Medical (six) Branch hours as needed for Pain (scale 7-10). gabapentin 2020-0 Yes [id number] 200mg Take 2 [facility] 100 mg 4-29 capsules [facility] of capsule 00:00: by mouth 3 [place] 00 (three) Medical times Branch daily. acetaminoph 2020-0 Yes [id number] 1{tbl} Take 1 [facility] en-codeine 4-29 tablet by ity of 300-30 mg 00:00: mouth [place] tablet 00 every 6 Medical (six) Branch hours as needed for Pain (scale 7-10). acetaminoph 2020-0 Yes [id number] 1{tbl} Take 1 [facility] en-codeine 4-29 tablet by ity of 300-30 mg 00:00: mouth [place] tablet 00 every 6 Medical (six) Branch hours as needed for Pain (scale 7-10). acetaminoph 2020-0 Yes [id number] 1{tbl} Take 1 [facility] en-codeine 4-29 tablet by ity of 300-30 mg 00:00: mouth [place] tablet 00 every 6 Medical (six) Branch hours as needed for Pain (scale 7-10). acetaminoph 2020-0 Yes [id number] 1{tbl} Take 1 [facility] en-codeine 4-29 tablet by ity of 300-30 mg 00:00: mouth [place] tablet 00 every 6 Medical (six) Branch hours as needed for Pain (scale 7-10). acetaminoph 2020-0 Yes [id number] 1{tbl} Take 1 [facility] en-codeine 4-29 tablet by ity of 300-30 mg 00:00: mouth [place] tablet 00 every 6 Medical (six) Branch hours as needed for Pain (scale 7-10). acetaminoph 2020-0 Yes [id number] 1{tbl} Take 1 [facility] en-codeine 4-29 tablet by ity of 300-30 mg 00:00: mouth [place] tablet 00 every 6 Medical (six) Branch hours as needed for Pain (scale 7-10). acetaminoph 2020-0 Yes [id number] 1{tbl} Take 1 [facility] en-codeine 4-29 tablet by ity of 300-30 mg 00:00: mouth [place] tablet 00 every 6 Medical (six) Branch hours as needed for Pain (scale 7-10). acetaminoph 2020-0 Yes [id number] 1{tbl} Take 1 [facility] en-codeine 4-29 tablet by ity of 300-30 mg 00:00: mouth [place] tablet 00 every 6 Medical (six) Branch hours as needed for Pain (scale 7-10). acetaminoph 2020-0 Yes [id number] 1{tbl} Take 1 [facility] en-codeine 4-29 tablet by ity of 300-30 mg 00:00: mouth [place] tablet 00 every 6 Medical (six) Branch hours as needed for Pain (scale 7-10). acetaminoph 2020-0 Yes [id number] 1{tbl} Take 1 [facility] en-codeine 4-29 tablet by ity of 300-30 mg 00:00: mouth [place] tablet 00 every 6 Medical (six) Branch hours as needed for Pain (scale 7-10). acetaminoph 2020-0 Yes [id number] 1{tbl} Take 1 [facility] en-codeine 4-29 tablet by ity of 300-30 mg 00:00: mouth [place] tablet 00 every 6 Medical (six) Branch hours as needed for Pain (scale 7-10). acetaminoph 2020-0 Yes [id number] 1{tbl} Take 1 [facility] en-codeine 4-29 tablet by ity of 300-30 mg 00:00: mouth [place] tablet 00 every 6 Medical (six) Branch hours as needed for Pain (scale 7-10). acetaminoph 2020-0 Yes [id number] 1{tbl} Take 1 [facility] en-codeine 4-29 tablet by ity of 300-30 mg 00:00: mouth [place] tablet 00 every 6 Medical (six) Branch hours as needed for Pain (scale 7-10). acetaminoph 2020-0 Yes [id number] 1{tbl} Take 1 [facility] en-codeine 4-29 tablet by ity of 300-30 mg 00:00: mouth [place] tablet 00 every 6 Medical (six) Branch hours as needed for Pain (scale 7-10). acetaminoph 2020-0 Yes [id number] 1{tbl} Take 1 [facility] en-codeine 4-29 tablet by ity of 300-30 mg 00:00: mouth [place] tablet 00 every 6 Medical (six) Branch hours as needed for Pain (scale 7-10). acetaminoph 2020-0 Yes [id number] 1{tbl} Take 1 [facility] en-codeine 4-29 tablet by ity of 300-30 mg 00:00: mouth [place] tablet 00 every 6 Medical (six) Branch hours as needed for Pain (scale 7-10). acetaminoph 2020-0 Yes [id number] 1{tbl} Take 1 [facility] en-codeine 4-29 tablet by ity of 300-30 mg 00:00: mouth [place] tablet 00 every 6 Medical (six) Branch hours as needed for Pain (scale 7-10). acetaminoph 2020-0 Yes [id number] 1{tbl} Take 1 [facility] en-codeine 4-29 tablet by ity of 300-30 mg 00:00: mouth [place] tablet 00 every 6 Medical (six) Branch hours as needed for Pain (scale 7-10). acetaminoph 2020-0 Yes [id number] 1{tbl} Take 1 [facility] en-codeine 4-29 tablet by ity of 300-30 mg 00:00: mouth [place] tablet 00 every 6 Medical (six) Branch hours as needed for Pain (scale 7-10). acetaminoph 2020-0 Yes [id number] 1{tbl} Take 1 [facility] en-codeine 4-29 tablet by ity of 300-30 mg 00:00: mouth [place] tablet 00 every 6 Medical (six) Branch hours as needed for Pain (scale 7-10). acetaminoph 2020-0 Yes [id number] 1{tbl} Take 1 [facility] en-codeine 4-29 tablet by ity of 300-30 mg 00:00: mouth [place] tablet 00 every 6 Medical (six) Branch hours as needed for Pain (scale 7-10). acetaminoph 2020-0 Yes [id number] 1{tbl} Take 1 [facility] en-codeine 4-29 tablet by ity of 300-30 mg 00:00: mouth [place] tablet 00 every 6 Medical (six) Branch hours as needed for Pain (scale 7-10). acetaminoph 2020-0 Yes [id number] 1{tbl} Take 1 [facility] en-codeine 4-29 tablet by ity of 300-30 mg 00:00: mouth [place] tablet 00 every 6 Medical (six) Branch hours as needed for Pain (scale 7-10). acetaminoph 2020-0 Yes [id number] 1{tbl} Take 1 [facility] en-codeine 4-29 tablet by ity of 300-30 mg 00:00: mouth [place] tablet 00 every 6 Medical (six) Branch hours as needed for Pain (scale 7-10). acetaminoph 2020-0 Yes [id number] 1{tbl} Take 1 [facility] en-codeine 4-29 tablet by ity of 300-30 mg 00:00: mouth [place] tablet 00 every 6 Medical (six) Branch hours as needed for Pain (scale 7-10). acetaminoph 2020-0 Yes [id number] 1{tbl} Take 1 [facility] en-codeine 4-29 tablet by ity of 300-30 mg 00:00: mouth [place] tablet 00 every 6 Medical (six) Branch hours as needed for Pain (scale 7-10). acetaminoph 2020-0 Yes [id number] 1{tbl} Take 1 [facility] en-codeine 4-29 tablet by ity of 300-30 mg 00:00: mouth [place] tablet 00 every 6 Medical (six) Branch hours as needed for Pain (scale 7-10). gabapentin 2020-0 Yes [id number] 200mg Take 2 [facility] 100 mg 3-25 capsules [facility] capsule 00:00: by mouth 3 [place] 00 (three) Medical times Branch daily. acetaminoph 2020-0 Yes [id number] 1{tbl} Take 1 [facility] en-codeine 3-25 tablet by ity of 300-30 mg 00:00: mouth [place] tablet 00 every 6 Medical (six) Branch hours as needed for Pain (scale 7-10). gabapentin 2020-0 Yes [id number] 200mg Take 2 [facility] 100 mg 3-25 capsules [facility] of capsule 00:00: by mouth 3 [place] 00 (three) Medical times [facility] daily. acetaminoph 2020-0 Yes [id number] 1{tbl} Take 1 [facility] en-codeine 3-25 tablet by ity of 300-30 mg 00:00: mouth [place] tablet 00 every 6 Medical (six) Branch hours as needed for Pain (scale 7-10). gabapentin 2020-0 Yes [id number] 200mg Take 2 [facility] 100 mg 3-25 capsules [facility] of capsule 00:00: by mouth 3 [place] 00 (three) Medical times [facility] daily. acetaminoph 2020-0 Yes [id number] 1{tbl} Take 1 [facility] en-codeine 3-25 tablet by ity of 300-30 mg 00:00: mouth [place] tablet 00 every 6 Medical (six) Branch hours as needed for Pain (scale 7-10). gabapentin 2019- No [id number] 200mg Take 2 [facility] 100 mg 01-13-29 capsules ity of capsule 00:00: 00:00 by mouth 3 [place] 00 :00 (three) Medical times Branch daily. acetaminoph 2020- No [id number] 1{tbl} Take 1 [facility] en-codeine 01-13- tablet by ity of 300-30 mg 00:00: 00:00 mouth [place] tablet 00 :00 every 6 Medical (six) Branch hours as needed for Pain (scale 7-10). Clobetasol Clobetasol 2018-10 Yes [facility] Q0.5D APPLY [place] Propionate Propionate 0-09 LILLY N.P. SPARINGLY [facility] 0.05 % 0.05 % 00:00: TO ans External External 00 AFFECTED Cream Cream AREA(S) TWICE DAILY clobetasol 2018-10 Yes APPLY [facility] (Temovate) 0-09 SPARINGLY [facility]al [facility] 0.05 % 00:00: TO cream 00 AFFECTED AREA(S) TWICE DAILY Ketoconazol Ketoconazol Yes OLIVER APPLY TO [facility] e 2 % e 2 % 9-06 LILLY N.P. SCALP Physic i External External 00:00: TWICE ans Shampoo Shampoo 00 WEEKLY FOR 2-4 WEEKS. Fluconazole Fluconazole Yes OLIVER Take 1 [facility] 150 MG Oral 150 MG Oral 9-06 LILLY N.P. tablet [facility] Tablet Tablet 00:00: weekly for ans 00 4 weeks. ketoconazol Yes APPLY TO [facility] e (NIZOral) 9-06 SCALP Health 2 % shampoo 00:00: TWICE 00 WEEKLY FOR 2-4 WEEKS. fluconazole Yes Take 1 [facility] (Diflucan) 9-06 tablet [facility] 150 MG 00:00: weekly for tablet 00 4 weeks. Halobetasol Halobetasol 2018- Yes DANYELLE-MARCIA QD APPLY [facility] Propionate Propionate 5-02 YEH D.O. SPARINGLY [facility] 0.05 % 0.05 % 00:00: TO ans External External 00 AFFECTED Cream Cream AREA(S) ONCE DAILY Capex 0.01 Capex 0.01 2019-0 Yes DANYELLE-MARCIA QD SHAMPOO [facility] % External % External 4-24 YEH D.O. HAIR/SCALP [facility] Shampoo Shampoo 00:00: ans 00 DIRECTED Clobetasol Clobetasol 2019-0 Yes DANYELLE-MARCIA MASSAGE [facility] Propionate Propionate 4-23 YEH D.O. ONTO WET [facility] 0.05 % 0.05 % 00:00: SCALP. ans External External 00 LEAVE Shampoo Shampoo LATHER ON FOR 3 MINUTES, THEN RINSE. REPEAT THE APPLICATIO N ONCE. PRN gabapentin 2017- Yes [id number] 200mg Take 2 [facility] 100 mg 2-05 capsules [facility] capsule 00:00: by mouth 3 [place] 00 (three) Medical times [facility] daily. gabapentin 2017- Yes [id number] 200mg Take 2 [facility] 100 mg 2-05 capsules [facility] capsule 00:00: by mouth 3 [place] 00 (three) Medical times [facility] daily. gabapentin 2017- Yes [id number] 200mg Take 2 [facility] 100 mg 2-05 capsules [facility] of capsule 00:00: by mouth 3 [place] 00 (three) Medical times [facility] daily. gabapentin 2017- Yes [id number] 200mg Take 2 [facility] 100 mg 2-05 capsules [facility] of capsule 00:00: by mouth 3 [place] 00 (three) Medical times [facility] daily. gabapentin 2017- Yes [id number] 200mg Take 2 [facility] 100 mg 2-05 capsules [facility] of capsule 00:00: by mouth 3 [place] 00 (three) Medical times [facility] daily. gabapentin 2017- Yes [id number] 200mg Take 2 [facility] 100 mg 2-05 capsules [facility] of capsule 00:00: by mouth 3 [place] 00 (three) Medical times [facility] daily. gabapentin 2017- Yes [id number] 200mg Take 2 [facility] 100 mg 2-05 capsules [facility] of capsule 00:00: by mouth 3 [place] 00 (three) Medical times [facility] daily. gabapentin 2018- Yes [id number] 200mg Take 2 [facility] 100 mg 2-05 capsules [facility] capsule 00:00: by mouth 3 [place] 00 (three) Medical times [facility] daily. gabapentin 2018- Yes [id number] 200mg Take 2 [facility] 100 mg 2-05 capsules [place] [facility] [place] [facility] daily. gabapentin 2017- Yes [id number] 200mg Take 2 [facility] 100 mg 2-05 capsules [facility] [place] [facility] [place] [facility] daily. gabapentin 2017-10 Yes [id number] 200mg Take 2 [facility] 100 mg 2-05 capsules [facility] [place] [facility] [place] [facility] daily. Cyclobenzap Cyclobenzap 2017-10 Yes SEFERINO Morrison Q0.5D TAKE 1 UT rine HCl - rine HCl - 1-08 MANNY TABLET [facility] 7.5 MG Oral 7.5 MG Oral 00:00: P.A. TWICE ans Tablet Tablet 00 DAILY PRN muscle spasm raNITIdine raNITIdine 2017-10 Yes U T HCl - 150 HCl - 150 1-06 Physi ci MG Oral MG Oral 00:00: ans Tablet Tablet 00 Pristiq 100 Pristiq 100 Yes [facility] MG Oral MG Oral 9-26 [facility] Tablet Tablet 00:00: ans Extended Extended 00 Release 24 Release 24 Hour Hour LORazepam 1 LORazepam 1 Yes [facility] MG Oral MG Oral 9-26 [facility] Tablet Tablet 00:00: ans 00 Acetaminoph Acetaminoph Yes SEFERINO Morrison TAKE 1 [facility] en-Codeine en-Codeine 9-26 MANNY TABLET [facility] #3 300-30 #3 300-30 00:00: P.A. Bedtime ans MG Oral MG Oral 00 PRN Tablet Tablet moderate to severe pain LORazepam 2 Yes 2mg Take 2 mg U nivers mg tablet 8-24 by mouth 3 ity of 15:54: (three) [place] 14 times Medical daily as Branch needed. ERGOCALCIFE Yes 1{tbl} Take 1 Un sasha ROL, 8-24 tablet by ity of VITAMIN D2, 15:54: mouth [place] (VITAMIN D 14 daily. Medical ORAL) Branch lisdexamfet Yes 50mg Take 50 mg [facility] amine 8-24 by mouth ity of (VYVANSE) 15:54: every [place] 50 mg 14 morning. Medical capsule Branch LORazepam 2 Yes 2mg Take 2 mg U nivers mg tablet 8-24 by mouth 3 ity of 15:54: (three) [place] 14 times Medical daily as Branch needed. ERGOCALCIFE Yes 1{tbl} Take 1 Un sasha ROL, 8-24 tablet by ity of VITAMIN D2, 15:54: mouth [place] (VITAMIN D 14 daily. Medical ORAL) Branch lisdexamfet 2018-0 Yes 50mg Take 50 mg [facility] amine 8-24 by mouth ity of (VYVANSE) 15:54: every [place] 50 mg 14 morning. Medical capsule Branch LORazepam 2 2018-0 Yes 2mg Take 2 mg U nivers mg tablet 8-24 by mouth 3 ity of 15:54: (three) [place] 14 times Medical daily as Branch needed. ERGOCALCIFE 2018-0 Yes 1{tbl} Take 1 Un sasha ROL, 8-24 tablet by ity of VITAMIN D2, 15:54: mouth [place] (VITAMIN D 14 daily. Medical ORAL) Branch lisdexamfet 2018-0 Yes 50mg Take 50 mg [facility] amine 8-24 by mouth ity of (VYVANSE) 15:54: every [place] 50 mg 14 morning. Medical capsule Branch LORazepam 2 2017-0 Yes 2mg Take 2 mg U nivers mg tablet 8-24 by mouth 3 ity of 15:54: (three) [place] 14 times Medical daily as Branch needed. ERGOCALCIFE 2018-0 Yes 1{tbl} Take 1 Un sasha ROL, 8-24 tablet by ity of VITAMIN D2, 15:54: mouth [place] (VITAMIN D 14 daily. Medical ORAL) Branch lisdexamfet 2018-0 Yes 50mg Take 50 mg [facility] amine 8-24 by mouth ity of (VYVANSE) 15:54: every [place] 50 mg 14 morning. Medical capsule Branch LORazepam 2 2017-0 Yes 2mg Take 2 mg U nivers mg tablet 8-24 by mouth 3 ity of 15:54: (three) [place] 14 times Medical daily as Branch needed. ERGOCALCIFE 2018-0 Yes 1{tbl} Take 1 Un sasha ROL, 8-24 tablet by ity of VITAMIN D2, 15:54: mouth [place] (VITAMIN D 14 daily. Medical ORAL) Branch lisdexamfet 2018-0 Yes 50mg Take 50 mg [facility] amine 8-24 by mouth ity of (VYVANSE) 15:54: every [place] 50 mg 14 morning. Medical capsule Branch LORazepam 2 2018-0 Yes 2mg Take 2 mg U nivers mg tablet 8-24 by mouth 3 ity of 15:54: (three) [place] 14 times Medical daily as Branch needed. ERGOCALCIFE 2018-0 Yes 1{tbl} Take 1 Un [facility] ROL, 8-24 tablet by ity of VITAMIN D2, 15:54: mouth [place] (VITAMIN D 14 daily. Medical ORAL) Branch lisdexamfet 2017-0 Yes 50mg Take 50 mg [facility] amine 8-24 by mouth ity of (VYVANSE) 15:54: every [place] 50 mg 14 morning. Medical capsule Branch LORazepam 2 2017-0 Yes 2mg Take 2 mg U nivers mg tablet 8-24 by mouth 3 ity of 15:54: (three) [place] 14 times Medical daily as Branch needed. ERGOCALCIFE 2018-0 Yes 1{tbl} Take 1 Un [facility] ROL, 8-24 tablet by ity of VITAMIN D2, 15:54: mouth [place] (VITAMIN D 14 daily. Medical ORAL) Branch lisdexamfet 0 Yes 50mg Take 50 mg [facility] amine 8-24 by mouth ity of (VYVANSE) 15:54: every [place] 50 mg 14 morning. Medical capsule Branch LORazepam 2 Yes 2mg Take 2 mg U nivers mg tablet 8-24 by mouth 3 ity of 15:54: (three) [place] 14 times Medical daily as Branch needed. ERGOCALCIFE 2018-0 Yes 1{tbl} Take 1 Un [facility]asha ROL, 8-24 tablet by ity of VITAMIN D2, 15:54: mouth [place] (VITAMIN D 14 daily. Medical ORAL) Branch lisdexamfet 0 Yes 50mg Take 50 mg [facility] amine 8-24 by mouth ity of (VYVANSE) 15:54: every [place] 50 mg 14 morning. Medical capsule Branch LORazepam 2 Yes 2mg Take 2 mg U nivers mg tablet 8-24 by mouth 3 ity of 15:54: (three) [place] 14 times Medical daily as Branch needed. ERGOCALCIFE 2018-0 Yes 1{tbl} Take 1 [facility] ROL, 8-24 tablet by ity of VITAMIN D2, 15:54: mouth [place] (VITAMIN D 14 daily. Medical ORAL) Branch lisdexamfet 2017-0 Yes 50mg Take 50 mg [facility] amine 8-24 by mouth ity of (VYVANSE) 15:54: every [place] 50 mg 14 morning. Medical capsule Branch LORazepam 2 2018-0 Yes 2mg Take 2 mg U nivers mg tablet 8-24 by mouth 3 ity of 15:54: (three) [place] 14 times Medical daily as Branch needed. ERGOCALCIFE 2018-0 Yes 1{tbl} Take 1 [facility] ROL, 8-24 tablet by ity of VITAMIN D2, 15:54: mouth [place] (VITAMIN D 14 daily. Medical ORAL) Branch lisdexamfet 2018-0 Yes 50mg Take 50 mg [facility] amine 8-24 by mouth ity of (VYVANSE) 15:54: every [place] 50 mg 14 morning. Medical capsule Branch LORazepam 2 2017- Yes 2mg Take 2 mg U nivers mg tablet 8-24 by mouth 3 ity of 15:54: (three) [place] 14 times Medical daily as Branch needed. ERGOCALCIFE 2017-0 Yes 1{tbl} Take 1 [facility] ROL, 8-24 tablet by ity of VITAMIN D2, 15:54: mouth [place] (VITAMIN D 14 daily. Medical ORAL) Branch lisdexamfet 2017-0 Yes 50mg Take 50 mg [facility] amine 8-24 by mouth ity of (VYVANSE) 15:54: every [place] 50 mg 14 morning. Medical capsule Branch LORazepam 2 Yes 2mg Take 2 mg U nivers mg tablet 8-24 by mouth 3 ity of 15:54: (three) [place] 14 times Medical daily as Branch needed. ERGOCALCIFE 2017-0 Yes 1{tbl} Take 1 Un [facility]asha ROL, 8-24 tablet by ity of VITAMIN D2, 15:54: mouth [place] (VITAMIN D 14 daily. Medical ORAL) Branch lisdexamfet 2017-0 Yes 50mg Take 50 mg [facility] amine 8-24 by mouth ity of (VYVANSE) 15:54: every [place] 50 mg 14 morning. Medical capsule Branch LORazepam 2 2017-0 Yes 2mg Take 2 mg U nivers mg tablet 8-24 by mouth 3 ity of 15:54: (three) [place] 14 times Medical daily as Branch needed. ERGOCALCIFE 2018-0 Yes 1{tbl} Take 1 [facility] ROL, 8-24 tablet by ity of VITAMIN D2, 15:54: mouth [place] (VITAMIN D 14 daily. Medical ORAL) Branch lisdexamfet 2017-0 Yes 50mg Take 50 mg [facility] amine 8-24 by mouth ity of (VYVANSE) 15:54: every [place] 50 mg 14 morning. Medical capsule Branch LORazepam 2 2017- Yes 2mg Take 2 mg U nivers mg tablet 8-24 by mouth 3 ity of 15:54: (three) [place] 14 times Medical daily as Branch needed. ERGOCALCIFE 2017- Yes 1{tbl} Take 1 Un [facility] ROL, 8-24 tablet by ity of VITAMIN D2, 15:54: mouth [place] (VITAMIN D 14 daily. Medical ORAL) Branch lisdexamfet Yes 50mg Take 50 mg [facility] amine 8-24 by mouth ity of (VYVANSE) 15:54: every [place] 50 mg 14 morning. Medical capsule Branch LORazepam 2 Yes 2mg Take 2 mg U nivers mg tablet 8-24 by mouth 3 ity of 15:54: (three) [place] 14 times Medical daily as Branch needed. ERGOCALCIFE 2017- Yes 1{tbl} Take 1 [facility] ROL, 8-24 tablet by ity of VITAMIN D2, 15:54: mouth [place] (VITAMIN D 14 daily. Medical ORAL) Branch lisdexamfet Yes 50mg Take 50 mg [facility] amine 8-24 by mouth ity of (VYVANSE) 15:54: every [place] 50 mg 14 morning. Medical capsule Branch LORazepam 2 Yes 2mg Take 2 mg U nivers mg tablet 8-24 by mouth 3 ity of 15:54: (three) [place] 14 times Medical daily as Branch needed. ERGOCALCIFE 2017- Yes 1{tbl} Take 1 [facility] ROL, 8-24 tablet by ity of VITAMIN D2, 15:54: mouth [place] (VITAMIN D 14 daily. Medical ORAL) Branch lisdexamfet Yes 50mg Take 50 mg [facility] amine 8-24 by mouth ity of (VYVANSE) 15:54: every [place] 50 mg 14 morning. Medical capsule Branch LORazepam 2 Yes 2mg Take 2 mg U nivers mg tablet 8-24 by mouth 3 ity of 15:54: (three) [place] 14 times Medical daily as Branch needed. ERGOCALCIFE 2017-0 Yes 1{tbl} Take 1 Un [facility]asha ROL, 8-24 tablet by ity of VITAMIN D2, 15:54: mouth [place] (VITAMIN D 14 daily. Medical ORAL) Branch lisdexamfet 2018-0 Yes 50mg Take 50 mg [facility] amine 8-24 by mouth ity of (VYVANSE) 15:54: every [place] 50 mg 14 morning. Medical capsule Branch LORazepam 2 2018-0 Yes 2mg Take 2 mg U nivers mg tablet 8-24 by mouth 3 ity of 15:54: (three) [place] 14 times Medical daily as Branch needed. ERGOCALCIFE 2018-0 Yes 1{tbl} Take 1 Un sasha ROL, 8-24 tablet by ity of VITAMIN D2, 15:54: mouth [place] (VITAMIN D 14 daily. Medical ORAL) Branch lisdexamfet 2018-0 Yes 50mg Take 50 mg [facility] amine 8-24 by mouth ity of (VYVANSE) 15:54: every [place] 50 mg 14 morning. Medical capsule Branch LORazepam 2 2017-0 Yes 2mg Take 2 mg U nivers mg tablet 8-24 by mouth 3 ity of 15:54: (three) [place] 14 times Medical daily as Branch needed. ERGOCALCIFE 2018-0 Yes 1{tbl} Take 1 Un sasha ROL, 8-24 tablet by ity of VITAMIN D2, 15:54: mouth [place] (VITAMIN D 14 daily. Medical ORAL) Branch lisdexamfet 2017-0 Yes 50mg Take 50 mg [facility] amine 8-24 by mouth ity of (VYVANSE) 15:54: every [place] 50 mg 14 morning. Medical capsule Branch LORazepam 2 2017-0 Yes 2mg Take 2 mg U nivers mg tablet 8-24 by mouth 3 ity of 15:54: (three) [place] 14 times Medical daily as Branch needed. ERGOCALCIFE 2018-0 Yes 1{tbl} Take 1 Un sasha ROL, 8-24 tablet by ity of VITAMIN D2, 15:54: mouth [place] (VITAMIN D 14 daily. Medical ORAL) Branch lisdexamfet 2018-0 Yes 50mg Take 50 mg [facility] amine 8-24 by mouth ity of (VYVANSE) 15:54: every [place] 50 mg 14 morning. Medical capsule Branch LORazepam 2 2018-0 Yes 2mg Take 2 mg U nivers mg tablet 8-24 by mouth 3 ity of 15:54: (three) [place] 14 times Medical daily as Branch needed. ERGOCALCIFE 2018-0 Yes 1{tbl} Take 1 Un [facility]asha ROL, 8-24 tablet by ity of VITAMIN D2, 15:54: mouth [place] (VITAMIN D 14 daily. Medical ORAL) Branch lisdexamfet 2017-0 Yes 50mg Take 50 mg [facility] amine 8-24 by mouth ity of (VYVANSE) 15:54: every [place] 50 mg 14 morning. Medical capsule Branch LORazepam 2 Yes 2mg Take 2 mg U nivers mg tablet 8-24 by mouth 3 ity of 15:54: (three) [place] 14 times Medical daily as Branch needed. ERGOCALCIFE 2018-0 Yes 1{tbl} Take 1 Un sasha ROL, 8-24 tablet by ity of VITAMIN D2, 15:54: mouth [place] (VITAMIN D 14 daily. Medical ORAL) Branch lisdexamfet 0 Yes 50mg Take 50 mg [facility] amine 8-24 by mouth ity of (VYVANSE) 15:54: every [place] 50 mg 14 morning. Medical capsule Branch LORazepam 2 Yes 2mg Take 2 mg U nivers mg tablet 8-24 by mouth 3 ity of 15:54: (three) [place] 14 times Medical daily as Branch needed. ERGOCALCIFE 2017-0 Yes 1{tbl} Take 1 Un sasha ROL, 8-24 tablet by ity of VITAMIN D2, 15:54: mouth [place] (VITAMIN D 14 daily. Medical ORAL) Branch lisdexamfet 0 Yes 50mg Take 50 mg [facility] amine 8-24 by mouth ity of (VYVANSE) 15:54: every [place] 50 mg 14 morning. Medical capsule Branch LORazepam 2 Yes 2mg Take 2 mg U nivers mg tablet 8-24 by mouth 3 ity of 15:54: (three) [place] 14 times Medical daily as Branch needed. ERGOCALCIFE 2018-0 Yes 1{tbl} Take 1 Un sasha ROL, 8-24 tablet by ity of VITAMIN D2, 15:54: mouth [place] (VITAMIN D 14 daily. Medical ORAL) Branch lisdexamfet 0 Yes 50mg Take 50 mg [facility] amine 8-24 by mouth ity of (VYVANSE) 15:54: every [place] 50 mg 14 morning. Medical capsule Branch LORazepam 2 2018-0 Yes 2mg Take 2 mg U nivers mg tablet 8-24 by mouth 3 ity of 15:54: (three) [place] 14 times Medical daily as Branch needed. ERGOCALCIFE 2018-0 Yes 1{tbl} Take 1 Un sasha ROL, 8-24 tablet by ity of VITAMIN D2, 15:54: mouth [place] (VITAMIN D 14 daily. Medical ORAL) Branch lisdexamfet 2018-0 Yes 50mg Take 50 mg [facility] amine 8-24 by mouth ity of (VYVANSE) 15:54: every [place] 50 mg 14 morning. Medical capsule Branch LORazepam 2 2018-0 Yes 2mg Take 2 mg U nivers mg tablet 8-24 by mouth 3 ity of 15:54: (three) [place] 14 times Medical daily as Branch needed. ERGOCALCIFE 2018-0 Yes 1{tbl} Take 1 Un [facility] ROL, 8-24 tablet by ity of VITAMIN D2, 15:54: mouth [place] (VITAMIN D 14 daily. Medical ORAL) Branch lisdexamfet 2018-0 Yes 50mg Take 50 mg [facility] amine 8-24 by mouth ity of (VYVANSE) 15:54: every [place] 50 mg 14 morning. Medical capsule Branch LORazepam 2 2018-0 Yes 2mg Take 2 mg U nivers mg tablet 8-24 by mouth 3 ity of 15:54: (three) [place] 14 times Medical daily as Branch needed. ERGOCALCIFE 2018-0 Yes 1{tbl} Take 1 Un [facility] ROL, 8-24 tablet by ity of VITAMIN D2, 15:54: mouth [place] (VITAMIN D 14 daily. Medical ORAL) Branch lisdexamfet 2018-0 Yes 50mg Take 50 mg [facility] amine 8-24 by mouth ity of (VYVANSE) 15:54: every [place] 50 mg 14 morning. Medical capsule Branch LORazepam 2 2018-0 Yes 2mg Take 2 mg U nivers mg tablet 8-24 by mouth 3 ity of 15:54: (three) [place] 14 times Medical daily as Branch needed. ERGOCALCIFE 2018-0 Yes 1{tbl} Take 1 Un [facility] ROL, 8-24 tablet by ity of VITAMIN D2, 15:54: mouth [place] (VITAMIN D 14 daily. Medical ORAL) Branch lisdexamfet 2018-0 Yes 50mg Take 50 mg [facility] amine 8-24 by mouth ity of (VYVANSE) 15:54: every [place] 50 mg 14 morning. Medical capsule Branch LORazepam 2 2017- Yes 2mg Take 2 mg U nivers mg tablet 8-24 by mouth 3 ity of 15:54: (three) [place] 14 times Medical daily as Branch needed. ERGOCALCIFE 2018- Yes 1{tbl} Take 1 Un [facility]asha ROL, 8-24 tablet by ity of VITAMIN D2, 15:54: mouth [place] (VITAMIN D 14 daily. Medical ORAL) Branch lisdexamfet 2017-0 Yes 50mg Take 50 mg [facility] amine 8-24 by mouth ity of (VYVANSE) 15:54: every [place] 50 mg 14 morning. Medical capsule Branch LORazepam 2 2017- Yes 2mg Take 2 mg U nivers mg tablet 8-24 by mouth 3 ity of 15:54: (three) [place] 14 times Medical daily as Branch needed. ERGOCALCIFE 2017- Yes 1{tbl} Take 1 Un sasha ROL, 8-24 tablet by ity of VITAMIN D2, 15:54: mouth [place] (VITAMIN D 14 daily. Medical ORAL) Branch lisdexamfet Yes 50mg Take 50 mg [facility] amine 8-24 by mouth ity of (VYVANSE) 15:54: every [place] 50 mg 14 morning. Medical capsule Branch LORazepam 2 Yes 2mg Take 2 mg U nivers mg tablet 8-24 by mouth 3 ity of 15:54: (three) [place] 14 times Medical daily as Branch needed. ERGOCALCIFE 2017- Yes 1{tbl} Take 1 Un sasha ROL, 8-24 tablet by ity of VITAMIN D2, 15:54: mouth [place] (VITAMIN D 14 daily. Medical ORAL) Branch lisdexamfet Yes 50mg Take 50 mg [facility] amine 8-24 by mouth ity of (VYVANSE) 15:54: every [place] 50 mg 14 morning. Medical capsule Branch LORazepam 2 0 Yes 2mg Take 2 mg U nivers mg tablet 8-24 by mouth 3 ity of 15:54: (three) [place] 14 times Medical daily as Branch needed. ERGOCALCIFE 2017- Yes 1{tbl} Take 1 Un sasha ROL, 8-24 tablet by ity of VITAMIN D2, 15:54: mouth [place] (VITAMIN D 14 daily. Medical ORAL) Branch lisdexamfet 2018-0 Yes 50mg Take 50 mg [facility] amine 8-24 by mouth ity of (VYVANSE) 15:54: every [place] 50 mg 14 morning. Medical capsule Branch LORazepam 2 2018-0 Yes 2mg Take 2 mg U nivers mg tablet 8-24 by mouth 3 ity of 15:54: (three) [place] 14 times Medical daily as Branch needed. ERGOCALCIFE 2018-0 Yes 1{tbl} Take 1 Un sasha ROL, 8-24 tablet by ity of VITAMIN D2, 15:54: mouth [place] (VITAMIN D 14 daily. Medical ORAL) Branch lisdexamfet 2018-0 Yes 50mg Take 50 mg [facility] amine 8-24 by mouth ity of (VYVANSE) 15:54: every [place] 50 mg 14 morning. Medical capsule Branch LORazepam 2 2017-0 Yes 2mg Take 2 mg U nivers mg tablet 8-24 by mouth 3 ity of 15:54: (three) [place] 14 times Medical daily as Branch needed. ERGOCALCIFE 2018-0 Yes 1{tbl} Take 1 Un sasha ROL, 8-24 tablet by ity of VITAMIN D2, 15:54: mouth [place] (VITAMIN D 14 daily. Medical ORAL) Branch lisdexamfet 2017-0 Yes 50mg Take 50 mg [facility] amine 8-24 by mouth ity of (VYVANSE) 15:54: every [place] 50 mg 14 morning. Medical capsule Branch LORazepam 2 2017-0 Yes 2mg Take 2 mg U nivers mg tablet 8-24 by mouth 3 ity of 15:54: (three) [place] 14 times Medical daily as Branch needed. ERGOCALCIFE 2018-0 Yes 1{tbl} Take 1 Un sasha ROL, 8-24 tablet by ity of VITAMIN D2, 15:54: mouth [place] (VITAMIN D 14 daily. Medical ORAL) Branch lisdexamfet 2018-0 Yes 50mg Take 50 mg [facility] amine 8-24 by mouth ity of (VYVANSE) 15:54: every [place] 50 mg 14 morning. Medical capsule Branch LORazepam 2 2017-0 Yes 2mg Take 2 mg U nivers mg tablet 8-24 by mouth 3 ity of 15:54: (three) [place] 14 times Medical daily as Branch needed. ERGOCALCIFE 2018-0 Yes 1{tbl} Take 1 Un sasha ROL, 8-24 tablet by ity of VITAMIN D2, 15:54: mouth [place] (VITAMIN D 14 daily. Medical ORAL) Branch lisdexamfet Yes 50mg Take 50 mg [facility] amine 8-24 by mouth ity of (VYVANSE) 15:54: every [place] 50 mg 14 morning. Medical capsule Branch LORazepam 2 Yes 2mg Take 2 mg U nivers mg tablet 8-24 by mouth 3 ity of 15:54: (three) [place] 14 times Medical daily as Branch needed. ERGOCALCIFE Yes 1{tbl} Take 1 Un sasha ROL, 8-24 tablet by ity of VITAMIN D2, 15:54: mouth [place] (VITAMIN D 14 daily. Medical ORAL) Branch lisdexamfet Yes 50mg Take 50 mg [facility] amine 8-24 by mouth ity of (VYVANSE) 15:54: every [place] 50 mg 14 morning. Medical capsule Branch LORazepam 2 Yes 2mg Take 2 mg U nivers mg tablet 8-24 by mouth 3 ity of 10:54: (three) [place] 14 times Medical daily as Branch needed. ERGOCALCIFE Yes 1{tbl} Take 1 Un sasha ROL, 8-24 tablet by ity of VITAMIN D2, 10:54: mouth [place] (VITAMIN D 14 daily. Medical ORAL) Branch lisdexamfet Yes 50mg Take 50 mg [facility] amine 8-24 by mouth ity of (VYVANSE) 10:54: every [place] 50 mg 14 morning. Medical capsule Branch PRISTIQ 100 2014-10 Yes Univer s mg 24 hr 1-25 ity of tablet 00:00: [place] 00 [facility] PRISTIQ 100 2014-10 Yes Univer s mg 24 hr 1-25 ity of tablet 00:00: [place] 00 [facility] PRISTIQ 100 2014-10 Yes Univer s mg 24 hr 1-25 ity of tablet 00:00: [place] 00 [facility] PRISTIQ 100 2014-10 Yes Univer s mg 24 hr 1-25 ity of tablet 00:00: [place] 00 [facility] PRISTIQ 100 2014-10 Yes Univer s mg 24 hr 1-25 ity of tablet 00:00: [place] 00 [facility] PRISTIQ 100 2014-10 Yes Univer s mg 24 hr 1-25 ity of tablet 00:00: [place] 00 [facility] PRISTIQ 100 2014-10 Yes Univer s mg 24 hr 1-25 ity of tablet 00:00: [place] 00 [facility] PRISTIQ 100 2014-10 Yes Univer s mg 24 hr 1-25 ity of tablet 00:00: [place] 00 [facility] PRISTIQ 100 2014-10 Yes Univer s mg 24 hr 1-25 ity of tablet 00:00: [place] 00 [facility] PRISTIQ 100 2014-10 Yes Univer s mg 24 hr 1-25 ity of tablet 00:00: [place] 00 [facility] PRISTIQ 100 2014-10 Yes Univer s mg 24 hr 1-25 ity of tablet 00:00: [place] 00 [facility] PRISTIQ 100 2014-10 Yes Univer s mg 24 hr 1-25 ity of tablet 00:00: [place] 00 [facility] PRISTIQ 100 2014-10 Yes Univer s mg 24 hr 1-25 ity of tablet 00:00: [place] 00 [facility] PRISTIQ 100 2014-10 Yes Univer s mg 24 hr 1-25 ity of tablet 00:00: [place] 00 [facility] PRISTIQ 100 2014-10 Yes Univer s mg 24 hr 1-25 ity of tablet 00:00: [place] 00 [facility] PRISTIQ 100 2014-10 Yes Univer s mg 24 hr 1-25 ity of tablet 00:00: [place] 00 [facility] PRISTIQ 100 2014-10 Yes Univer s mg 24 hr 1-25 ity of tablet 00:00: [place] 00 [facility] PRISTIQ 100 2014-10 Yes Univer s mg 24 hr 1-25 ity of tablet 00:00: [place] 00 [facility] PRISTIQ 100 2014-10 Yes Univer s mg 24 hr 1-25 ity of tablet 00:00: [place] 00 [facility] [place] PRISTIQ 100 2014-10 Yes Univer s mg 24 hr 1-25 ity of tablet 00:00: [place] 00 [facility] PRISTIQ 100 2014-10 Yes Univer s mg 24 hr 1-25 ity of tablet 00:00: [place] 00 [facility] PRISTIQ 100 2014-10 Yes Univer s mg 24 hr 1-25 ity of tablet 00:00: [place] 00 [facility] PRISTIQ 100 2014-10 Yes Univer s mg 24 hr 1-25 [facility] [place] [facility]-25 ity of tablet 00:00: [place] 00 [facility] PRISTIQ 100 2014-10 Yes Univer s mg 24 hr 1-25 ity of tablet 00:00: [place] [facility] hr 1-25 ity [facility] tablet [address] Univer s mg 24 hr 1-25 ity of tablet 00:00[address]-10 [address] Univer s mg 24 hr 1-25 ity of tablet 00:00: [address]-10 [address] Univer s mg 24 hr 1-25 ity of tablet 00:00[address]-10 [address] Univer s mg 24 hr 1-25 ity of tablet 00:00: [address]-10 [address] Univer s mg 24 hr 1-25 ity of tablet 00:00: [place] [address] [place], [place] [id number] 100 2014-10 Yes Univer s mg 24 hr 1-25 ity of tablet 00:00: [address] 2014-10 [address] Univer s mg 24 hr 1-25 ity of tablet 00:00: [place] [facility] mg 24 hr 1-25 ity of tablet 00:00: [place] [address] [place], [place] [id number] 100 2014-10 Yes Univer s mg 24 hr 1-25 ity of tablet 00:00: [place] 00 [facility] PRISTIQ 100 2014-10 Yes Univer s mg 24 hr 1-25 ity of tablet 00:00: [place] [address] [place] [address] PRISTIQ 100 2014-10 Yes Univer s mg 24 hr 1-25 ity of tablet 00:00: [address] PRISTIQ 100 2014-10 Yes Univer s mg 24 hr 1-25 ity of tablet 00:00: [address] Vyvanse Vyvanse Yes [facility] NexIUM 24HR NexIUM 24HR Yes U T 20 MG Oral 20 MG Oral Phy sici Capsule Capsule ans Delayed Delayed Release Release Immunizations Ordered Immunization Filled Immunization Date Status Commen ts Source Name Name SARS-COV-2 COVID-19 2021-03-01 Completed Unive rsity of PFIZER VACCINE 00:00:00 [facility] Pfizer COVID-19 Pfizer COVID-19 2021-03-01 Completed Vaccine Vaccine 00:00:00 Covid-19 Pfizer 2021-03-01 Com[facility] SARS-CoV-2 00:00:00 Vaccination COVID-19 Pfizer 12 & 2021-03-01 [facility] Vaccination [facility]:00 SARS-COV-2 COVID-19 2021-02-08 Completed Unive rsity of PFIZER VACCINE 00:00:00 [facility] Pfizer COVID-19 Pfizer COVID-19 2021-02-08 Completed Vaccine Vaccine 00:00:00 Covid-19 Pfizer 2021-02-08 Completed [facility] SARS-CoV-2 00:00:00 Vaccination COVID-19 Pfizer 12 & 2021-02-08 [facility]:00 Fluzone Quadrivalent 2019-07-30 [facility] 0.5 ML Intramuscular 08:47:00 Suspension Influenza, seasonal, 2019-07-30 [facility] injectable 00:00:00 Influenza, seasonal, 2019-07-30 [facility] 00:[facility]:00 Fluzone Quadrivalent 2018-08-29 Completed [facility] 0.5 ML Intramuscular 11:24:00 Suspension Influenza, seasonal, 2018-08-29 [facility] 00:00:00 Influenza, seasonal, 2018-08-29 [facility] 00:[facility]:00 Tdap 2016-11-22 Completed [facility] 00:00:00 [facility] Tdap 2016-11-22 Completed [facility] of 00:00:00 [facility] Tdap 2016-11-22 Completed [facility] of 00:00:00 [facility] Tdap 2016-11-22 Completed [facility] of 00:00:00 [facility] Tdap 2016-11-22 Completed [facility] of 00:00:00 [facility] Tdap 2016-11-22 Completed [facility] of 00:00:00 [facility] Tdap 2016-11-22 Completed [facility] of 00:00:00 [facility] Tdap 2016-11-22 Completed University of 00:00:00 [facility] Tdap 2016-11-22 Completed University of 00:00:00 [facility] Tdap 2016-11-22 Completed [facility] 00:00:00 [place] [facility] Tdap 2016-11-22 Completed [facility] 00:00:00 [place] [facility] Tdap 2016-11-22 Completed [facility] of 00:00:00 [facility] TDAP 2016-11-22 Completed [facility] of 00:00:00 [place] [facility] TDAP 2016-11-22 Completed [facility] 00:00:00 [place] [facility] TDAP 2016-11-22 Completed [facility] of 00:00:00 [facility] TDAP 2016-11-22 Completed [facility] of 00:00:00 [facility] TDAP 2016-11-22 Completed [facility] of 00:00:00 [facility] TDAP 2016-11-22 Completed [facility] of 00:00:00 [facility] TDAP 2016-11-22 Completed [facility] of 00:00:00 [facility] TDAP 2016-11-22 Completed [facility] of 00:00:00 [facility] TDAP 2016-11-22 Completed [facility] of 00:00:00 [facility] TDAP 2016-11-22 Completed University of 00:00:00 [facility] TDAP 2016-11-22 Completed University of 00:00:00 [facility] TDAP 2016-11-22 Completed University of 00:00:00 [facility] TDAP 2016-11-22 Completed University of 00:00:00 [facility] TDAP 2016-11-22 Completed University of 00:00:00 [facility] TDAP 2016-11-22 Completed University of 00:00:00 [facility] TDAP 2016-11-22 Completed University of 00:00:00 [facility] TDAP 2016-11-22 Completed University of 00:00:00 [facility] TDAP 2016-11-22 Completed University of 00:00:00 [facility] TDAP 2016-11-22 Completed University of 00:00:00 [facility] TDAP 2016-11-22 Completed University of 00:00:00 [facility] TDAP 2016-11-22 Completed University of 00:00:00 [facility] TDAP 2016-11-22 Completed University of 00:00:00 [facility] TDAP 2016-11-22 Completed University of 00:00:00 [facility] TDAP 2016-11-22 Completed University of 00:00:00 [facility] TDAP 2016-11-22 Completed University of 00:00:00 [facility] Tdap 2016-11-22 Completed University of 00:00:00 [facility] Vital Signs Vital Name Observation Time Observation Value Comments Source Systolic blood 2021-02-09 124 mm[Hg] University of pressure 14:59:00 [facility] Diastolic blood 2021-02-09 76 mm[Hg] University o f pressure 14:59:00 [facility] Body height 2021-02-09 157.5 cm University of 14:58:00 [facility] Body weight 2021-02-09 68.947 kg University of 14:58:00 [facility] BMI 2021-02-09 27.80 kg/m2 University of 14:58:00 [facility] Oxygen saturation 2021-02-09 100 /min University of in Arterial blood 14:58:00 [place] [facility] P[facility]xim[facility] Heart rate 2021-02-09 70 /min University of 14:58:00 [facility] Systolic blood 2020-10-13 127 mm[Hg] University of pressure 15:00:00 [facility] Diastolic blood 2020-10-13 73 mm[Hg] University o f pressure 15:00:00 [facility] Heart rate 2020-10-13 63 /min University of 15:00:00 [facility] Respiratory rate 2020-10-13 18 /min University of 15:00:00 [facility] Body height 2020-10-13 157.5 cm University of 15:00:00 [facility] Body weight 2020-10-13 67.132 kg University of 15:00:00 [facility] BMI 2020-10-13 27.07 kg/m2 University of 15:00:00 [facility] Oxygen saturation 2020-10-13 100 /min University of in Arterial blood 15:00:00 [place] [facility] Systolic blood 2020-09-22 134 mm[Hg] University of pressure 17:15:00 [facility] Diastolic blood 2020-09-22 90 mm[Hg] University o f pressure 17:15:00 [facility] Heart rate 2020-09-22 79 /min University of 17:14:00 [facility] Respiratory rate 2020-09-22 18 /min University of 17:14:00 [facility] Body height 2020-09-22 157.5 cm University of 17:14:00 [facility] Body weight 2020-09-22 68.811 kg University of 17:14:00 [facility] BMI 2020-09-22 27.75 kg/m2 University of 17:14:00 [facility] Oxygen saturation 2020-09-22 100 /min University of in Arterial blood 17:14:00 [facility] segun by Pulse oximetry Branch Systolic blood 2020-09-22 134 mm[Hg] University of pressure 17:15:00 [facility] Diastolic blood 2020-09-22 90 mm[Hg] University o f pressure 17:15:00 [facility] Heart rate 2020-09-22 79 /min University of 17:14:00 [facility] Respiratory rate 2020-09-22 18 /min University of 17:14:00 [facility] Body height 2020-09-22 157.5 cm University of 17:14:00 [facility] Body weight 2020-09-22 68.811 kg University of 17:14:00 [facility] BMI 2020-09-22 27.75 kg/m2 University of 17:14:00 [facility] Oxygen saturation 2020-09-22 100 /min University of in Arterial blood 17:14:00 [facility] by Pulse oximetry Branch Systolic blood 2020-05-26 134 mm[Hg] University of pressure 18:03:00 [facility] Diastolic blood 2020-05-26 87 mm[Hg] University o f pressure 18:03:00 [facility] Heart rate 2020-05-26 83 /min University of 18:03:00 [facility] Body height 2020-05-26 158.8 cm University of 18:03:00 [facility] Body weight 2020-05-26 70.58 kg University of 18:03:00 [facility] BMI 2020-05-26 28.01 kg/m2 University of 18:03:00 [facility] Oxygen saturation 2020-05-26 100 /min University of in Arterial blood 18:03:00 [place] [facility] Systolic blood 2020-04-15 121 mm[Hg] University of pressure 14:04:00 [facility] Diastolic blood 2020-04-15 76 mm[Hg] University o f pressure 14:04:00 [facility] Heart rate 2020-04-15 70 /min University of 14:04:00 [facility] Body height 2020-04-15 157.5 cm University of 14:04:00 [facility] Body weight 2020-04-15 73.165 kg [facility] 14:04:00 [facility] BMI 2020-04-15 29.50 kg/m2 [facility] 14:04:00 [facility] Oxygen saturation 2020-04-15 98 /min [facility] in Arterial blood 14:04:00 [facility] by Pulse oximetry [place] Systolic blood 2020-03-10 131 mm[Hg] University of pressure 17:49:00 [facility] Diastolic blood 2020-03-10 77 mm[Hg] [place] o f pressure 17:49:00 [facility] Heart rate 2020-03-10 78 /min [facility] 17:49:00 [facility] Body height 2020-03-10 158.8 cm [facility] 17:49:00 [facility] Body weight 2020-03-10 67.541 kg [facility] 17:49:00 [facility] BMI 2020-03-10 26.80 kg/m2 [facility] 17:49:00 [facility] BP Systolic 2019-07-30 110 mm[Hg] Location: [facility]; [facility] 08:34:00 Position: Sitting BP Diastolic 2019-07-30 77 mm[Hg] Location: [facility] 08:34:00 Position: Sitting Height 2019-07-30 62 [in_us] [facility] 08:34:00 Weight 2019-07-30 161.5 [lb_av] [facility] 08:34:00 Body Mass Index 2019-07-30 29.54 kg/m2 [facility] Cal[facility] 08:34:00 Temperature 2019-07-30 98.4 [degF] Method: [facility] 08:34:00 Temporal Heart Rate 2019-07-30 87 /min Location: L [facility] 08:34:00 Brachial Artery; Respiration Rate 2019-07-30 16 /min Quality: Normal [facility] 08:34:00 BP Systolic 2019-06-27 142 mm[Hg] Location: L[facility]; [facility] 12:32:00 Position: Sitting BP Diastolic 2019-06-27 91 mm[Hg] Location: [facility]; [facility] 12:32:00 Position: Sitting Heart Rate 2019-06-27 94 /min Location: [facility] 12:32:00 Brachial Artery; BP Systolic 2019-06-27 154 mm[Hg] Location: [facility] 12:29:00 Position: Sitting BP Diastolic 2019-06-27 93 mm[Hg] Location: LUE; [facility] 12:29:00 Position: Sitting Heart Rate 2019-06-27 93 /min Location: L [facility] 12:29:00 Brachial Artery; Height 2019-06-27 62 [in_us] [facility] 12:29:00 Weight 2019-06-27 173.25 [lb_av] [facility] 12:29:00 Body Mass Index 2019-06-27 31.69 kg/m2 [facility] Cal[facility] 12:29:00 Temperature 2019-06-27 99.2 [degF] Method: [facility] 12:29:00 Temporal Respiration Rate 2019-06-27 16 /min Quality: Normal [facility] 12:29:00 BP Systolic 2019-02-11 135 mm[Hg] Location: L[facility]; [facility] 12:46:00 Position: Sitting BP Diastolic 2019-02-11 87 mm[Hg] Location: [facility]; [facility] 12:46:00 Position: Sitting Height 2019-02-11 62 [in_us] [facility] 12:46:00 Weight 2019-02-11 207 [lb_av] [facility] 12:46:00 Body Mass Index 2019-02-11 37.86 kg/m2 [facility] Calculated 12:46:00 Temperature 2019-02-11 97.6 [degF] Method: [facility] 12:46:00 Temporal Respiration Rate 2019-02-11 16 /min [facility] 12:46:00 Heart Rate 2019-02-11 75 /min [facility] 12:46:00 BP Systolic 2018-08-29 143 mm[Hg] [facility] 11:08:00 BP Diastolic 2018-08-29 86 mm[Hg] [facility] 11:08:00 Heart Rate 2018-08-29 90 /min [facility] 11:08:00 BP Systolic 2018-08-29 148 mm[Hg] Location: [facility]; [facility] 11:07:00 Position: Sitting BP Diastolic 2018-08-29 91 mm[Hg] Location: [facility]; [facility] 11:07:00 Position: Sitting Heart Rate 2018-08-29 90 /min [facility] 11:07:00 Height 2018-08-29 62 [in_us] [facility] 11:07:00 Weight 2018-08-29 362.125 [lb_av] [facility] 11:07:00 Body Mass Index 2018-08-29 66.23 kg/m2 [facility] Calculated 11:07:00 Temperature 2018-08-29 97.5 [degF] Method: [facility] 11:07:00 Temporal Respiration Rate 2018-08-29 16 /min [facility] 11:07:00 BP Systolic 2018-07-17 149 mm[Hg] [facility] 09:56:00 BP Diastolic 2018-07-17 93 mm[Hg] [facility] 09:56:00 Heart Rate 2018-07-17 86 /min [facility] 09:56:00 BP Systolic 2018-07-17 151 mm[Hg] Location: [facility]; [facility] 09:54:00 Position: Sitting BP Diastolic 2018-07-17 108 mm[Hg] Location: [facility]; [facility] 09:54:00 Position: Sitting Heart Rate 2018-07-17 88 /min [facility] 09:54:00 Height 2018-07-17 62 [in_us] [facility] 09:54:00 Weight 2018-07-17 265.25 [lb_av] [facility] 09:54:00 Body Mass Index 2018-07-17 48.52 kg/m2 [facility] Calculated 09:54:00 Temperature 2018-07-17 98.4 [degF] Method: [facility] 09:54:00 Temporal Respiration Rate 2018-07-17 16 /min [facility] 09:[facility]:00 Procedures Procedure Date / Time Performing Clinician Source Performed REFERRAL- 2021-07-15 05:01:00 Doctor Unassigned, No [facility] REQUEST/RESPONSE Name Medical Branch [place] TIME OR 2021-04-18 19:27:19 Case Valdez [facility] (NON-REPORTABLE) Medical Branch ASSIGNMENT OF BENEFITS 2021-04-18 18:07:14 Doctor Unassigned, No [facility] Name Medical Branch DISCLOSURE AND CONSENT, 2020-10-13 06:01:00 Doctor Unassigned, N o [facility] MEDICAL AND SURGICAL Name Medical Bra [facility] PROCEDURES [place] TIME (NON-REPORTABLE) 2020-04-15 14:41:55 Case Valdez [facility] Medical [place] PATIENT QUESTIONNAIRE 2020-03-22 05:01:00 Doctor Unassigned, No [facility] Medical Branch DISCLOSURE AND CONSENT, 2020-03-10 05:01:00 Doctor Unassigned, N o [facility] MEDICAL AND SURGICAL Name Medical Bra nch PROCEDURES MR CERVICAL SPINE WO 2020-03-08 15:57:02 Shiv Proctor [facility] Branch MR LUMBAR SPINE WO 2020-03-08 15:56:42 [facility] YAHAIRA PANEL, 2019-07-30 00:00:00 [facility] COMPREHENSIVE [[facility]] RHEUMATOID FACTOR 2019-07-30 00:00:00 [facility] [[facility]] C-REACTIVE PROTEIN 2019-07-30 00:00:00 [facility] [[facility]] SED RATE BY 2019-07-30 00:00:00 [facility] MODIFIED KASSI AUTHORIZATION FOR 2019-07-02 05:01:00 Doctor Unassigned, No Univ [facility] RELEASE OF PHI Name Medical Branch [QL[facility]] URINALYSIS, 2018-07-25 00:00:00 [facility] COMPLETE [[facility]] CULTURE, URINE, 2018-07-25 00:00:00 [facility] ROUTINE [[facility]] CMP W/EGFR 2018-07-17 00:00:00 [facility] [[facility]] URINALYSIS, 2018-07-17 00:00:00 [facility] COMPLETE W/REFLEX TO CULTURE [QLH] LIPID PANEL 2018-07-17 00:00:00 [facility] [[facility]] TSH, 3RD 2018-07-17 00:00:00 [facility] GENERATION W/REFLEX TO FT4 [QLH] CBC (INCLUDES 2018-07-17 00:00:00 [facility] DIFF/PLT) MRI Spine cervical wo 2018-07-17 00:00:00 [facility] contrast 31390 History of [facility] Section Encounters Start End Encounter Admission Attending Care Care Encounter Source Date/Time Date/Time Type Type Clinicians Facility Department ID 2021-10-20 Outpatient BELLA [facility] [id number] [place] 15:29:17 [facility] 2021-08-19 [facility] [id number] Univers 08:36:[address] [facility] 2021-08-18 Inpatient JOHN [facility] [id number] Univers 22:00:[address] [facility] 2021-08-16 Outpatient MYERS, [facility] [id number] [place] 12:06:51 [facility] 2021-08-10 Outpatient LILLY, [facility] [id number] [place] [facility] 2022-[facility]10 2022-11-10 Outpatient S[facility] [id number] Jere 09:21:24 09:21:24 [id number] Cristhian 2022-07-04 2022-07-04 Outpatient R BETTY, [facility] [id number] Univers 10:00:00 10:00:00 KEVIN chavez [facility] 2022-04-25 2022-04-25 Outpatient R BETTY, [facility] [id number] Univers 08:30:00 08:30:00 KEVIN rojas o [facility] 2022-01-31 2022-01-31 Outpatient R [facility] [id number] Univers 10:30:00 10:30:00 [facility] 2022-01-03 2022-01-03 Outpatient R BETTY, [facility] [id number] Univers 09:00:00 09:00:00 KEVIN chavez [facility] 2021-10-31 2021-10-31 Telemedici KATYA Simpson [id number] [place] 09:45:00 10:15:00 gordon [facility] [id number] [facility] [id number] [id number] 1 2021-09-05 2021-09-05 Outpatient R REANNA, [facility] [id number] Univers 14:00:00 14:00:[address] [facility] 2021-08-11 2021-08-11 Abstract KATYA Carr [id number] [place] 00:00:00 00:00:00 Oliver [facility] [id number] H ealth CLINIC [id number] [id number] 1 2021-07-27 2021-07-27 Outpatient R COURTNEY [facility] [id number] Univers 15:30:00 15:30:00 CASE ity [facility] 2021-07-26 2021-07-26 Outpatient R KAYLIEPO-LAMIN [facility] [id number] Univers 09:50:00 09:50:00 , ity of [facility] 2021-07-25 2021-07-25 Outpatient R IBIDAPO-OBE [facility] [id number] Univers 09:30:00 09:30:00 , ity of [facility] 2021-07-19 2021-07-19 Outpatient R WILLIE SIMENTAL [facility] [id number] Univers 10:30:00 10:30:00 ity [facility] 2021-07-15 2021-07-15 Orders Doctor KNIGHT [id number] Univers 00:00:00 00:00:00 Only Unassigned, LIOR [id number] ity of [facility] [id number] [place] [id number] [address] 2021-07-13 2021-07-13 [facility] [id number] Univers 10:30:00 10:30:[address] [facility] 2021-07-08 2021-07-08 [facility] [id number] Univers 10:30:00 10:30:[address] [facility] 2021-06-08 2021-06-08 [facility] [id number] Univers 10:00:00 10:00:[address] [facility] 2021-06-03 2021-06-03 [facility] [id number] Univers 09:30:00 09:30:[address] [facility] 2021-04-20 2021-04-20 [facility] 1.2.840.114 [id number] Univers 00:00:00 00:00:00 Case Mann MULTISPEC [id number] [facility] [id number] [facility] [id number] [facility] MOLLY [address] Branch DIAB[facility]ES [facility] 2021-04-18 2021-04-18 Hospital [facility] 1.2.840.114 [id number] Univers 14:12:31 23:59:00 Encounter Case SKYPEC [id number] ity [id number] [id number] [facility] MOLLY 8[address] Branch DIABETES [facility]IN[facility] 2021-04-18 2021-04-18 Out[facility] [id number] Univers 14:00:00 14:00:00 CASE ity of [facility] 2021-04-18 2021-04-18 Orders Doctor ANTONIA [id number] Univers 00:00:00 00:00:00 Only Unassigned, LIOR [id number] ity of [place] [facility] [id number] [place] [id number] [facility] 009 Branch 2021-04-13 2021-04-13 Outpatient Dean [facility] [id number] Univers 10:00:00 10:00:00 CASE ity [facility] 2021-04-13 2021-04-13 Telephone [facility] [id number] Univers 00:00:00 00:00:00 Case SKYPEC [id number] ity of [id number] [id number] [facility] [place]ARN[place] 0[address] [place] [facility] 2021-03-24 2021-03-24 Outpatient [facility] [id number] Univers 15:30:00 15:30:00 CASE ity of [facility] 2021-03-24 2021-03-24 Telephone [facility] [id number] Univers 00:00:00 00:00:00 Case CHANG [id number] ity of [id number] [id number] [facility] AND [place]ES [address] [place] [facility] 2021-03-14 2021-03-14 Outpatient Dean [facility] [id number] Univers 14:00:00 14:00:00 [facility] 2021-03-01 2021-03-01 Outpatient GCCOVIDV GCCOVIDV [id number] GCCOVID 00:00:00 00:00:00 V 2021-02-09 2021-02-09 Office [facility] [id number] [id number] Univers 09:30:31 10:22:58 Visit Case Mann [facility] [id number] ity of IALTY [id number] [facility] [place] [id number] [address] DIABETES CLINIC 2021-02-09 2021-02-09 Outpatient Dean [facility] [id number] Univers 09:30:00 09:30:00 [facility] 2021-02-09 2021-02-09 [facility]ill [facility] [id number] [id number] Univers 00:00:00 00:00:00 Case Mann [facility] [id number] ity of IALTY [id number] [facility] [id number] [address] DIABETES CLINIC 2021-02-08 2021-02-08 Outpatient GCCOVIDV GCCOVIDV [id number] GCCOVID 00:00:00 00:00:00 V 2021-01-26 2021-01-26 Outpatient [facility] [id number] Univers 15:30:00 15:30:[address] [facility] 2021-01-14 2021-01-14 Outpatient Dean [facility] [id number] Univers 13:00:00 13:00:[address] [facility] 2020-12-07 2020-12-07 Outpatient Dean [facility] [id number] Univers 15:00:00 15:00:[address] [facility] 2020-11-17 2020-11-17 Outpatient Dean [facility] [id number] Univers 09:30:00 09:30:[address] [facility] 2020-10-13 2020-10-13 Office Case Valdez [facility] 1.2.84 0.114 [id number] Univers 08:43:06 09:27:52 Visit Room, [facility] Anesthesia Pain Procedure MULTISPEC [id number] it[place] [id number] [facility] AND [place] [address] [place] [facility] 2020-10-13 2020-10-13 Outpatient Dean VALDEZ [facility] [id number] Univers 09:00:00 09:00:[address] [facility] 2020-10-13 2020-10-13 Orders Doctor ANTONIA [id number] [id number] Univers 00:00:00 00:00:00 Only Unassigned, LIOR [id number] ity of [place] [facility] 4.2.7.2.686 [place] [id number] [facility] 009 Branch 2020-09-27 2020-09-27 Outpatient JUNE Daniel ADMI [id number] [facility] 12:47:00 12:47:[address] [place] [address] 2020-09-22 2020-09-22 Office [facility] 1.2.840.114 [id number] 10:57:22 12:16:25 Visit Case Myerskirby SKYPEC [id number] [place] 4.2.7.2.686 [place] [id number] AND MOLLY 011 [facility]IN[facility] 2020-09-22 2020-09-22 Office [facility] 1.2.840.114 [id number] Univers 10:57:22 12:16:25 Visit Case Mann ASYAPEC [id number] ity of IALTY [id number] [facility] [id number] [facility] AND MOLLY [address] Branch DIABETES CLINIC 2020-09-22 2020-09-22 Outpatient Dean VALDEZ [facility] [id number] Univers 11:00:00 11:00:00 CASE rojas [facility] 2020-09-08 2020-09-08 Outpatient Dean VALDEZ [facility] [id number] Univers 13:00:00 13:00:00 CASE rojas [facility] 2020-08-25 2020-08-25 Outpatient R COURTNEY [facility] [id number] Univers 10:30:00 10:30:00 CASE rojas [facility] 2020-08-18 2020-08-18 Outpatient R COURTNEY [facility] [id number] Univers 15:00:00 15:00:00 CASE rojas [facility] 2020-07-30 2020-07-30 Outpatient R COURTNEY [facility] [id number] Univers 09:30:00 09:30:00 CASE rojas [facility] 2020-07-23 2020-07-23 Telephone [facility] 1.2.840.114 [id number] Univers 00:00:00 00:00:00 [facility] 350.1.13.10 [id number] [id number] [address] Office Building 2020-07-12 2020-07-12 Refill [facility] 1.2.840.114 [id number] Univers 00:00:00 00:00:00 Case Mann MULTISPEC 350.1.13.10 [id number] [id number] [address] DIABETES CLINIC 2020-06-10 2020-06-10 Outpatient Dean BLACK [facility] [id number] Univers 10:00:00 10:00:00 EDGARDO loza [facility] 2020-06-04 2020-06-04 Telephone [facility] .2.840.114 [id number] Univers 00:00:00 00:00:00 [facility] 350.1.13.10 [id number] [id number] [address] Office Building 2020-06-02 2020-06-02 Outpatient R COURTNEY [facility] [id number] Univers 09:00:00 09:00:00 CASE rojas [facility] 2020-05-26 2020-05-26 Office [facility] 1.2.840.114 [id number] Univers 12:53:14 13:52:16 Visit Case Mann MULTISPEC 350.1.13.10 ity of IALTY [id number] [facility] [place] [id number] [address] DIABETES CLINIC 2020-05-26 2020-05-26 Outpatient R COURTNEY [facility] [id number] Univers 13:00:00 13:00:00 CASE ity [facility] 2020-05-25 2020-05-25 Telephone John [facility] 1..840.114 [id number] Univers 00:00:00 00:00:00 [facility] [id number] it y of [place] [id number] [facility] [id number] [address] Office Building 2020-05-24 2020-05-24 Outpatient [facility] [id number] Univers 08:00:00 08:00:00 CASE ity [facility] 2020-05-10 2020-05-10 Outpatient [facility] [id number] Univers 15:15:00 15:15:00 TIFFANY ity [facility] 2020-04-29 2020-04-29 Outpatient R [facility] [id number] Univers 16:20:00 16:20:00 ity [facility] 2020-04-20 2020-04-20 Outpatient [facility] [id number] Univers 11:00:00 11:00:00 NAKUL itsalbador [facility] 2020-04-16 2020-04-16 Telephone Antonia Puri [facility] 1..840.114 [id number] Univers 00:00:00 00:00:00 Jeffrey MULTISPEC 350.1.13.10 ity of [place] [id number] [facility] [id number] [address] DIABETES CLINIC 2020-04-15 2020-04-15 Outpatient R [facility] [id number] Univers 09:03:39 23:59:00 CASE ity [facility] 2020-04-15 2020-04-15 [facility] 1.2.840.114 [id number] Univers 09:03:00 23:59:00 Encounter Case Mann MULTISPEC 350.1.13.10 ity of [place] 4.2.7.2.686 [facility] [id number] [facility] AND [place] [address] [place] DI[facility] 2020-04-15 2020-04-15 Office Case Valdez [facility] 1.2.84 0.114 [id number] Univers 08:44:37 10:00:44 Visit Room, [facility] Anesthesia Pain Procedure MULTISPEC 350.1.13.10 ity of [place]AL[place] 4.2.7.2.[address] [place] [address] [id number] [facility] [address] [place] DIABETES [facility] 2020-03-25 2020-03-25 Outpatient Dean VINSON [facility] [id number] Univers 08:00:00 08:00:00 NAKUL itsalbador of [facility] 2020-03-25 2020-03-25 [facility]cin [facility] 1.2.840.114 [id number] Univers 00:00:00 00:00:00 Management Nisa [facility] [id number] ity of [place] 4.2.7.2.[address] [place] [id number] ([facility]) 2020-03-22 2020-03-22 Outpatient Dean VALDEZ [facility] [id number] Univers 09:30:00 09:30:00 CASE rojas of [facility] 2020-03-22 2020-03-22 Orders Doctor ANTONIA [id number] [id number] Univers 00:00:00 00:00:00 Only Unassigned, LIOR 350.1.13.10 ity of [place] [facility] 4.2.7.2.686 [facility] [phone] [facility] 009 Branch 2020-03-18 2020-03-18 Telephone Alis [facility] [id number] Univers 00:00:00 00:00:00 Brenda MULTISPEC 350.1.13.10 ity of IALTY 4.2.7.2.686 [facility] [phone] [facility] [address] [place] [facility] 2020-03-10 2020-03-10 Office John [facility] 1.2.840.114 [id number] Univers 12:29:11 14:07:13 Visit Shiv [facility] 350.1.13.10 [place] [phone] [address] Office Building 2020-03-10 2020-03-10 [facility] [id number] Univers 12:40:00 12:40:00 SHIV rojas [facility] 2020-03-10 2020-03-10 Orders Doctor ANTONIA 1.2.840.114 [id number] Univers 00:00:00 00:00:00 Only Unassigned, LIOR 350.1.13.10 ity of [place] [facility] 4.2.7.2.686 Maximus as [phone] [address] 2020-03-08 2020-03-08 [facility] [id number] Univers 08:54:00 23:59:00 Encounter Shiv SPECIALTY 350.1.13.10 [place] [phone] [facility] [address] 2020-03-08 2020-03-08 Outpatient [facility] [id number] Univers 08:53:44 08:53:00 SHIV rojas [facility] 2020-03-08 2020-03-08 [facility] [id number] Univers 08:53:00 08:53:00 Encounter Shiv SPECIALTY 350.1.13.10 [place] [id number] [address] 2020-02-18 2020-02-18 Outpatient [facility] [id number] Univers 10:00:00 10:00:00 SHIV rojas [facility] 2020-02-18 2020-02-18 [facility] 1.2.840.114 [id number] Univers 08:32:28 08:47:28 ne Visit Shiv [facility] 350.1.13.10 i [place] [id number] [address] Office [facility] 2020-01-26 2020-01-26 Telephone [facility] 1.2.840.114 [id number] Univers 00:00:00 00:00:00 [facility] 350.1.13.10 [place] [id number] [address] Office [facility] 2020-01-14 2020-01-14 Outpatient [facility] [id number] Univers 14:00:00 14:00:00 SHIV ity of [facility] 2020-01-14 2020-01-14 Telemedici [facility] 1.2.840.114 [id number] Univers 08:13:46 08:33:46 ne Visit [facility] 350.1.13.10 [place] [id number] [address] Office [facility] 2020-01-14 2020-01-14 Telephone [facility] 1.2.840.114 [id number] Univers 00:00:00 00:00:00 [facility] 350.1.13.10 [place] [phone] [address] Office [facility] 2019-12-18 2019-12-18 Outpatient R ALLEN MOORE [facility] [id number] Univers 10:40:00 10:40:00 ALLEN MOORE i ty of [facility] 2019-07-30 2019-07-30 Appointmen KATYA CARR Family [id number] [place] 08:30:00 08:30:00 t; OLIVER CARR NP Practice - Physici LUANN BOYD [facility] 2019-07-02 2019-07-02 Orders Doctor ANTONIA 1.2.840.114 [id number] Univers 00:00:00 00:00:00 Only Unassigned, LIOR 350.1.13.10 ity of [place] [facility] 4.2.7.2.686 [place] as [phone] [address] 2019-06-27 2019-06-27 Appointmen KATYA CARR Family [id number] [place] 12:30:00 12:30:00 t; OLIVER CARR, LUANN Practice - Physici OLIVER, LUANN [place], [facility] [address] 2019-02-11 2019-02-11 [facility] [id number] [place] 12:45:00 12:45:00 t; JEANA BAPTISTE, Family Ashley HILLS D.O. Practice ans D.OAraceli 2018-08-29 2018-08-29 Appointraymond BRYANT, [facility] [id number] [place] 11:30:00 11:30:00 t; Family SEFERINO Physic i MANNY, P.A. Practice ans SEFERINO, [address] P.AAraceli 2018-07-17 2018-07-17 Appointraymond BRYANT, [facility] [id number] [place] 09:45:00 09:45:00 t; SEFERINO Family Physic i MANNY, P.A. Practice ans Pina GENTILE 2017-12-26 2017-12-26 Appointraymond [facility] [id number] [place] 09:00:00 09:00:00 t; ABENA GRIFFIN Physi ci SHAOJIE, M.D. ans M.D. 2017-09-26 2017-09-26 Appointraymond [facility] [id number] [place] 09:30:00 09:30:00 t; Morgan BHAGAT i, M.D. ans HUBERT, M.D. 2017-04-02 2017-04-02 Chris [facility] [id number] [place] 14:45:00 14:45:00 t; Ester MONSALVE [facility] kartik [facility] Ester MONSALVE Results Test Test Test Results Result Source Description Time Comments Comments FL TIME OR 2021-03- These images do not require [place] of (NON-REPORTABLE 28 a Radiology diagnostic [facility] ) 19:27:44 report. Branch [place] TIME 2020-03- These images do not require [place] of (NON-REPORTABLE 25 a Radiology diagnostic [facility] ) 14:49:13 report. Branch MR LUMBAR SPINE 2020-02- Mild to moderate Un iversity of WO CONTRAST 18 degenerative changes of the [place] [facility] 17:06:26 cervical spine are Branch mostconspicuous at C6-C7, where there is moderate bilateral neural foraminalnarrowing, left more advanced than right with mild spinal canal stenosis. Xfgk-ez-udhefvmn multilevel degenerative changes of the lumbar spine aremost conspicuous at L4-L5 and L5-S1, as discussed above. ? No abnormal spinal cord signal changes in the cervical spine. Modic type I/discogenic changes noted at L5-S1. Preliminary Report Dictated by Resident: Jere Trotter I, Julieth Flowers MD., have reviewed this study and agree with the abovereport.MR LUMBAR SPINE WO CONTRAST, MR CERVICAL SPINE WO CONTRAST HISTORY: 35 years year-old Female lumbar disc, lumbar stenosis Back pain, >6wks conservative treatment, persistent symptoms COMPARISON: MRI cervical spine 07/29/2018 TECHNIQUE: Multiplanar multisequence MRI of the cervical and lumbar spinewas performed on a 3 [place] MRI without IV contrast. FINDINGS: MRI cervical spine: Motion artifact degrades image quality. There is straightening of thenormal cervical lordosis. The vertebral bodies are normal in height and innormal alignment. The cervical cord is normal in caliber and demonstratesnormal signal intensity. C2-C3: Normal significant spinal canal stenosis or neural foraminalnarrowing. C3-C4 and C4-C5: Shallow posterior disc osteophyte complex is seen withoutspinal canal or neural foraminal stenosis. C5-C6: A posterior disc osteophyte complex and bilateral uncovertebralarthropathy is noted. There is mild spinal canal stenosis without neuralforaminal narrowing. C6-C7: A posterior disc osteophyte complex, bilateral facet anduncovertebral arthropathy. Moderate bilateral neural foraminal narrowing isseen, left more advanced than right. There is mild spinal canal stenosis. C7-T1: No significant spinal canal stenosis or neural foraminal narrowing. MRI LUMBAR SPINE: Numbering assumes 5 nonrib-bearing lumbar type vertebra. The lumbar curvature is normal. The vertebral bodies are normal in heightand alignment. The conus medullaris terminates at the level of L1. Thecauda equina nerve roots are unremarkable. Mild disc space narrowing and disc desiccation is noted L5-S1. Type I Modicchanges are seen at L5-S1. L1-L2: No significant spinal canal stenosis or neural foraminal narrowing L2-L3: No significant spinal canal stenosis or neural foraminal narrowing L3-L4: A shallow disc bulge is seen with bilateral facet arthropathy. Nosignificant spinal canal stenosis or neural foraminal narrowing. L4-L5: A disc bulge is seen with bilateral facet arthropathy and ligamentumflavum thickening. There is mild bilateral neural foraminal narrowing withminimal spinal canal stenosis. L5-S1: A disc bulge is seen with bilateral facet arthropathy and marginalosteophytes. Aofq-dk-xngagisy bilateral neural foraminal narrowing is seenwithout spinal canal stenosis. [facility], Radiant Results Inft User - 03/08/2020 12:07 PM CDTMR LUMBAR SPINE WO CONTRAST, MR CERVICAL SPINE WO CONTRASTHISTORY: 35 years year-old Female lumbar disc, lumbar stenosis Back pain, >6wks conservative treatment, persistent symptomsCOMPARISON: MRI cervical spine 07/29/2018TECHNIQUE: Multiplanar multisequence MRI of the cervical and lumbar spinewas performed on a 3 [place] MRI without IV contrast.FINDINGS:MRI cervical spine:Motion artifact degrades image quality. There is straightening of thenormal cervical lordosis. The vertebral bodies are normal in height and innormal alignment. The cervical cord is normal in caliber and demonstratesnormal signal intensity. C2-C3: Normal significant spinal canal stenosis or neural foraminalnarrowing.C3-C4 and C4-C5: Shallow posterior disc osteophyte complex is seen withoutspinal canal or neural foraminal stenosis. C5-C6: A posterior disc osteophyte complex and bilateral uncovertebralarthropathy is noted. There is mild spinal canal stenosis without neuralforaminal narrowing.C6-C7: A posterior disc osteophyte complex, bilateral facet anduncovertebral arthropathy. Moderate bilateral neural foraminal narrowing isseen, left more advanced than right. There is mild spinal canal stenosis. C7-T1: No significant spinal canal stenosis or neural foraminal narrowing. MRI LUMBAR SPINE:Numbering assumes 5 nonrib-bearing lumbar type vertebra.The lumbar curvature is normal. The vertebral bodies are normal in heightand alignment. The conus medullaris terminates at the level of L1. Thecauda equina nerve roots are unremarkable.Mild disc space narrowing and disc desiccation is noted L5-S1. Type I Modicchanges are seen at L5-S1.L1-L2: No significant spinal canal stenosis or neural foraminal narrowingL2-L3: No significant spinal canal stenosis or neural foraminal narrowingL3-L4: A shallow disc bulge is seen with bilateral facet arthropathy. Nosignificant spinal canal stenosis or neural foraminal narrowing. L4-L5: A disc bulge is seen with bilateral facet arthropathy and ligamentumflavum thickening. There is mild bilateral neural foraminal narrowing withminimal spinal canal stenosis.L5-S1: A disc bulge is seen with bilateral facet arthropathy and marginalosteophytes. Zyum-lj-dxiwhrom bilateral neural foraminal narrowing is seenwithout spinal canal stenosis.IMPRESSIONMild to moderate degenerative changes of the cervical spine are mostconspicuous at C6-C7, where there is moderate bilateral neural foraminalnarrowing, left more advanced than right with mild spinal canal stenosis.Pmwb-fa-tothljgo multilevel degenerative changes of the lumbar spine aremost conspicuous at L4-L5 and L5-S1, as discussed above. No abnormal spinal cord signal changes in the cervical spine. Modic type I/discogenic changes noted at L5-S1.Preliminary Report Dictated by Resident: Julieth Swartz MD., have reviewed this study and agree with the abovereport. MR CERVICAL 2020-02- Mild to moderate Univer sity of SPINE WO 18 degenerative changes of the [place] [facility] CONTRAST 17:06:26 cervical spine are [place] mostconspicuous at C6-C7, where there is moderate bilateral neural foraminalnarrowing, left more advanced than right with mild spinal canal stenosis. Auvu-je-ecykngck multilevel degenerative changes of the lumbar spine aremost conspicuous at L4-L5 and L5-S1, as discussed above. ? No abnormal spinal cord signal changes in the cervical spine. Modic type I/discogenic changes noted at L5-S1. Preliminary Report Dictated by Resident: Julieth Smith MD., have reviewed this study and agree with the abovereport.MR LUMBAR SPINE WO CONTRAST, MR CERVICAL SPINE WO CONTRAST HISTORY: 35 years year-old Female lumbar disc, lumbar stenosis Back pain, >6wks conservative treatment, persistent symptoms COMPARISON: MRI cervical spine 07/29/2018 TECHNIQUE: Multiplanar multisequence MRI of the cervical and lumbar spinewas performed on a 3 [place] MRI without IV contrast. FINDINGS: MRI cervical spine: Motion artifact degrades image quality. There is straightening of thenormal cervical lordosis. The vertebral bodies are normal in height and innormal alignment. The cervical cord is normal in caliber and demonstratesnormal signal intensity. C2-C3: Normal significant spinal canal stenosis or neural foraminalnarrowing. C3-C4 and C4-C5: Shallow posterior disc osteophyte complex is seen withoutspinal canal or neural foraminal stenosis. C5-C6: A posterior disc osteophyte complex and bilateral uncovertebralarthropathy is noted. There is mild spinal canal stenosis without neuralforaminal narrowing. C6-C7: A posterior disc osteophyte complex, bilateral facet anduncovertebral arthropathy. Moderate bilateral neural foraminal narrowing isseen, left more advanced than right. There is mild spinal canal stenosis. C7-T1: No significant spinal canal stenosis or neural foraminal narrowing. MRI LUMBAR SPINE: Numbering assumes 5 nonrib-bearing lumbar type vertebra. The lumbar curvature is normal. The vertebral bodies are normal in heightand alignment. The conus medullaris terminates at the level of L1. Thecauda equina nerve roots are unremarkable. Mild disc space narrowing and disc desiccation is noted L5-S1. Type I Modicchanges are seen at L5-S1. L1-L2: No significant spinal canal stenosis or neural foraminal narrowing L2-L3: No significant spinal canal stenosis or neural foraminal narrowing L3-L4: A shallow disc bulge is seen with bilateral facet arthropathy. Nosignificant spinal canal stenosis or neural foraminal narrowing. L4-L5: A disc bulge is seen with bilateral facet arthropathy and ligamentumflavum thickening. There is mild bilateral neural foraminal narrowing withminimal spinal canal stenosis. L5-S1: A disc bulge is seen with bilateral facet arthropathy and marginalosteophytes. Isxi-ff-tachzdod bilateral neural foraminal narrowing is seenwithout spinal canal stenosis. [facility], Radiant Results Inft User - 03/08/2020 12:07 PM CDTMR LUMBAR SPINE WO CONTRAST, MR CERVICAL SPINE WO CONTRASTHISTORY: 35 years year-old Female lumbar disc, lumbar stenosis Back pain, >6wks conservative treatment, persistent symptomsCOMPARISON: MRI cervical spine 07/29/2018TECHNIQUE: Multiplanar multisequence MRI of the cervical and lumbar spinewas performed on a 3 [place] MRI without IV contrast.FINDINGS:MRI cervical spine:Motion artifact degrades image quality. There is straightening of thenormal cervical lordosis. The vertebral bodies are normal in height and innormal alignment. The cervical cord is normal in caliber and demonstratesnormal signal intensity. C2-C3: Normal significant spinal canal stenosis or neural foraminalnarrowing.C3-C4 and C4-C5: Shallow posterior disc osteophyte complex is seen withoutspinal canal or neural foraminal stenosis. C5-C6: A posterior disc osteophyte complex and bilateral uncovertebralarthropathy is noted. There is mild spinal canal stenosis without neuralforaminal narrowing.C6-C7: A posterior disc osteophyte complex, bilateral facet anduncovertebral arthropathy. Moderate bilateral neural foraminal narrowing isseen, left more advanced than right. There is mild spinal canal stenosis. C7-T1: No significant spinal canal stenosis or neural foraminal narrowing. MRI LUMBAR SPINE:Numbering assumes 5 nonrib-bearing lumbar type vertebra.The lumbar curvature is normal. The vertebral bodies are normal in heightand alignment. The conus medullaris terminates at the level of L1. Thecauda equina nerve roots are unremarkable.Mild disc space narrowing and disc desiccation is noted L5-S1. Type I Modicchanges are seen at L5-S1.L1-L2: No significant spinal canal stenosis or neural foraminal narrowingL2-L3: No significant spinal canal stenosis or neural foraminal narrowingL3-L4: A shallow disc bulge is seen with bilateral facet arthropathy. Nosignificant spinal canal stenosis or neural foraminal narrowing. L4-L5: A disc bulge is seen with bilateral facet arthropathy and ligamentumflavum thickening. There is mild bilateral neural foraminal narrowing withminimal spinal canal stenosis.L5-S1: A disc bulge is seen with bilateral facet arthropathy and marginalosteophytes. Umac-dz-tlvfqqiz bilateral neural foraminal narrowing is seenwithout spinal canal stenosis.IMPRESSIONMild to moderate degenerative changes of the cervical spine are mostconspicuous at C6-C7, where there is moderate bilateral neural foraminalnarrowing, left more advanced than right with mild spinal canal stenosis.Mqty-bu-tmxuxftv multilevel degenerative changes of the lumbar spine aremost conspicuous at L4-L5 and L5-S1, as discussed above. No abnormal spinal cord signal changes in the cervical spine. Modic type I/discogenic changes noted at L5-S1.Preliminary Report Dictated by Resident: Julieth Swartz MD., have reviewed this study and agree with the abovereport. [QLH] YAHAIRA PANEL, COMPREHENSIVE 2019-08-11 09:44:00 Test Item Value Reference Range Interpretation Comme nts YAHAIRA SCREEN, NEGATIVE NEGATIVE N YAHAIRA IFA is a fi rst line screen for detecting IFA (test thepresence of up to approximately 150 code = YAHAIRA autoantibodies invarious autoimmune diseases. A SCREEN, IFA) negative YAHAIRA IF A resultsuggests an YAHAIRA-associated autoimmune dise ase is notpresent at this time, but is not definiti ve. If thereis high clinical suspicion for S jogren's syndrome,testing for anti-SS-A/Ro an tibody should be considered.Anti-Susana-1 antibody should be considered for clinicallysuspe cted inflammatory myopathies. AC-0: Negative Line Camera Operator ational Consensus on YAHAIRA Patterns(https: //doi.org/10.1515/cqqc-7847-5259) For additional info rmation, please refer tohttp://The Political Studentat [email or web address]/faq/ENP664(T his link is [employer] [place] provided for informational/e ducational purposes only.) DNA (DS) 2 {IU/ml} N IU/mL Interpret ation < or = 4 Negative 5-9 ANTIBODY Indeterminate > or = 10 Positive (test code = DNA (DS) ANTIBODY) SCL-70 <1.0 NEG <1.0 NEG N ANTIBODY (test code = SCL-70 ANTIBODY) SM ANTIBODY <1.0 NEG <1.0 NEG N (test code = SM ANTIBODY) SM/DOOR LINER <1.0 NEG <1.0 NEG N ANTIBODY (test code = SM/DOOR LINER ANTIBODY) SJOGRENS <1.0 NEG <1.0 NEG N ANTIBODY (SS-A) (test code = SJOGRENS ANTIBODY (SS-A)) SJOGRENS <1.0 NEG <1.0 NEG N ANTIBODY (SS-B) (test code = SJOGRENS ANTIBODY (SS-B)) [facility][QL] SED RATE BY MODIFIED [id number] 09:44:00 Test Item Value Reference Range Interpretation Comments SED RATE BY MODIFIED WESTERGREN (test 29 mm/h < OR = 20 code = SED RATE BY MODIFIED WESTERGREN) [facility][QL] RHEUMATOID [id number] 09:44:00 Test Item Value Reference Range Interpretation Comments RHEUMATOID FACTOR (test code = <14 <14 N RHEUMATOID FACTOR) [facility]] C-REACTIVE [id number] 09:44:00 Test Item Value Reference Range Interpretation Comments C-REACTIVE PROTEIN (test code = 8.6 mg/L <8.0 C-REACTIVE PROTEIN) [facility]] URINALYSIS, [id number] 08:24:00 Test Item Value Reference Range Interpretation Comments COLOR; Normal (test code = 5778-6) YELLOW YELLOW N APPEARANCE (test code = APPEARANCE) CLEAR CLEAR N SPECIFIC GRAVITY; Normal (test code 1.007 1.001-1.035 N = 2965-2) PH; Normal (test code = 2756-5) 7.0 5.0-8.0 N GLUCOSE; Normal (test code = NEGATIVE NEGATIVE N 1547-9) BILIRUBIN; Normal (test code = NEGATIVE NEGATIVE N 58973-1) KETONES; Normal (test code = NEGATIVE NEGATIVE N 35117-3) OCCULT BLOOD; Normal (test code = NEGATIVE NEGATIVE N 80830-3) PROTEIN; Normal (test code = NEGATIVE NEGATIVE N 03192-9) NITRITE; Normal (test code = NEGATIVE NEGATIVE N 27741-2) LEUKOCYTE ESTERASE (test code = NEGATIVE NEGATIVE N LEUKOCYTE ESTERASE) WBC; Normal (test code = 6690-2) 0-5 < OR = 5 N RBC; Normal (test code = 789-8) NONE SEEN < OR = 2 N SQUAMOUS EPITHELIAL CELLS; Abnormal 6-10 < OR = 5 A (test code = 08152-6) BACTERIA; Normal (test code = NONE SEEN NONE SEEN N 630-4) HYALINE CAST; Normal (test code = NONE SEEN NONE SEEN N 27566-3) [facility]] CULTURE, URINE, [id number] 08:24:00 Test Item Value Reference Range Interpretation Comments CULTURE (test code See Comment CULTURE, URINE, ROUTINE = CULTURE) MICRO NUMBER: [id number] TEST STATUS: FI NAL SPECIMEN SOURCE : URINE SPECIMEN QUALIT Y: ADEQUATE RESULT : Three or more organis ms present, each g reater than 10,000 cu/ mL. May represent vik l randolph contamination f rom external genita rae. No further testing is required. [facility] cervical wo contrast [id number] 07:11:00Clinical Indication: - M50.20 Herniated cervical disc without myelopathy; neckpain radiating to leftshoulder and arm with bilateral hand numbness for 2yearsComparison: NoneTECHNIQUE: Multiplanar T1, T2, and STIR weighted MRI of the cervical spine isperformed.FINDINGS:ALIGNMENT AND GENERAL ASSESSMENT:There is normal alignment of the cervicalspine. No aggressive bone marrow abnormality is present. The prevertebral softtissues, atlanto-dental interspace and craniocervical junction are withinnormal limits. The facet joint alignment, spinolaminar and spinous processalignments are unremarkable. The posterior paraspinal soft tissues areunremarkable. The visualized brainstem region is unremarkable. The cervicalspinal cord is normal in size and signal.DISC SPACES:C2-C3: The disc is normal. There is no significant central canal or foraminalstenosis. The facet joints are unremarkable.C3-C4: The disc is normal. There is no significant central canal or foraminalstenosis. The facet joints are unremarkable.C4-C5: The disc is normal. There is no significant central canal or foraminalstenosis. The facet joints are unremarkable.C5-C6: The disc is normal. There is no significant central canal or foraminalstenosis. The facet joints are unremarkable.C6-C7: Asymmetric left greater than right disc bulge results in severe left andmild right neural foraminal narrowing with mild effacement of the anteriorthecal sac. There is no significant central canal stenosis. The facet jointsare unremarkable.C7-T1: The disc is normal. There is no significant central canal or foraminalstenosis. The facet joints are unremarkable.OTHER: The remaining visualized soft tissue and osseous structures are grosslyunremarkable.IMPRESSION:1. A C6/C7 asymmetric left greater than right disc bulge results in severeleft and mild right neural foraminal narrowing.2. No significant central canal effacement.SL: MICHELET--Read by: Cass Vinson MDDictated Date/time: 07/29/18 08:35Electronically Signed by: Cass Vinson MD 07/29/1808:40FINAL REPORT[facility]] LIPID [id number] 08:26:00 Test Item Value Reference Range Interpretation Comments CHOLESTEROL, TOTAL; 248 mg/dl <200 Above High Threshold (test code = 3-3) HDL CHOLESTEROL; 31 mg/dl >50 Below Low Threshold (test code = 5-9) TRIGLYCERIDES; Above 361 mg/dl <150 High Threshold (test code = 2571-8) LDL-CHOLESTEROL; 161 {MG/DL Reference r junior: Above High Threshold SEGUN} <100 De sirable range (test code = <100 mg/dL [place] [address]-6) primary prevent ion; <70 mg/dL for patients with C HD or diabetic patien ts with > or = 2 C HD risk factors. L DL-C is now calculat ed using the Fe calculation, wh ich is a validated novel method providin g better accuracy than the Friedewald equation in the estimation of L DL-C. Pillo SS et al . CHRISTINE. 2013;310( 19): 8991-0962 (http://educati on.8D World. com/f aq/EUI142) CHOL/HDLC RATIO 8.0 {CALC} <5.0 (test code = CHOL/HDLC RATIO) NON HDL CHOLESTEROL 217 {MG/DL <130 For ilene ents with (test code = NON HDL SEGUN} diabete s plus 1 CHOLESTEROL) major ASCVD ris k factor, treatin g to a non-HDL-C goa l of <100 mg/dL (LDL -C of <70 mg/dL) is considered a therapeutic opt ion. [facility]] CMP [id number] 08:26:00 Test Item Value Reference Range Interpretation Comments GLUCOSE; Normal 86 mg/dl 65-99 N Fasting refe rence (test code = interval 1547-9) UREA NITROGEN (BUN) 12 mg/dl 7-25 N (test code = UREA NITROGEN (BUN)) CREATININE (test 0.64 mg/dl 0.50-1.10 N code = CREATININE) eGFR NON- 117 {ML/MIN/1.7} > OR = 60 N CONGOLESE (test code = eGFR NON-) eGFR 136 {ML/MIN/1.7} > OR = 60 N CONGOLESE (test code = eGFR ) BUN/CREATININE NOT APPLICABLE 6-22 RATIO (test code = BUN/CREATININE RATIO) SODIUM (test code = 140 mmol/L 135-146 N SODIUM) POTASSIUM (test 4.6 mmol/L 3.5-5.3 N code = POTASSIUM) CHLORIDE (test code 104 mmol/L 98-110 N = CHLORIDE) CARBON DIOXIDE 24 mmol/L 20-32 N (test code = CARBON DIOXIDE) CALCIUM (test code 9.5 mg/dl 8.6-10.2 N = CALCIUM) PROTEIN, TOTAL 7.3 g/dl 6.1-8.1 N (test code = PROTEIN, TOTAL) ALBUMIN (test code 4.6 g/dl 3.6-5.1 N = ALBUMIN) GLOBULIN (test code 2.7 {G/DL CALC} 1.9-3.7 N = GLOBULIN) ALBUMIN/GLOBULIN 1.7 {CALC} 1.0-2.5 N RATIO (test code = ALBUMIN/GLOBULIN RATIO) BILIRUBIN, TOTAL; 0.8 mg/dl 0.2-1.2 N Normal (test code = 66527-7) ALKALINE PHSPHATASE 67 u/l 33-115 N (test code = ALKALINE PHSPHATASE) AST; Normal (test 15 u/l 10-30 N code = 1916-6) ALT; Normal (test 16 u/l 6-29 N code = 1742-6) [facility]] URINALYSIS, COMPLETE W/REFLEX TO [id number] 08:26:00 Test Item Value Reference Range Interpretation Comments COLOR; Normal (test code = YELLOW YELLOW N 5778-6) APPEARANCE (test code = CLOUDY CLEAR A APPEARANCE) SPECIFIC GRAVITY; Normal 1.019 1.001-1.035 N (test code = 2965-2) PH; Abnormal (test code = > OR = 8.5 5.0-8.0 A 2756-5) GLUCOSE; Normal (test code NEGATIVE NEGATIVE N = 1547-9) BILIRUBIN; Normal (test NEGATIVE NEGATIVE N code = 67486-5) KETONES; Normal (test code NEGATIVE NEGATIVE N = 38548-2) OCCULT BLOOD; Abnormal 3+ NEGATIVE A (test code = 45824-3) PROTEIN; Abnormal (test TRACE NEGATIVE A code = 44367-2) NITRITE (test code = NEGATIVE NEGATIVE N NITRITE) LEUKOCYTE ESTERASE (test NEGATIVE NEGATIVE N code = LEUKOCYTE ESTERASE) WBC; Normal (test code = 0-5 < OR = 5 N 6690-2) RBC; Abnormal (test code = 3-10 < OR = 2 A 789-8) SQUAMOUS EPITHELIAL CELLS; 10-20 < OR = 5 A Abnormal (test code = 41017-3) BACTERIA; Abnormal (test FEW NONE SEEN A code = 630-4) TRIPLE PHOSPHATE CRYSTALS; FEW NONE OR FEW N Normal (test code = 5814-9) HYALINE CAST; Normal (test NONE SEEN NONE SEEN N code = 88987-6) COMMENTS (test code = FEW MUCOUS THREADS 05291-7) [facility]] CBC (INCLUDES DIFF/PLT)2018-07-23 08:26:00 Test Item Value Reference Range Interpretation Comments WHITE BLOOD CELL COUNT 7.3 {Thousand/u} 3.8-10.8 N (test code = WHITE BLOOD CELL COUNT) RED BLOOD CELL COUNT (test 4.60 {Million/uL} 3.80-5.10 N code = RED BLOOD CELL COUNT) HEMAGLOBIN; Normal (test 13.4 g/dl 11.7-15.5 N code = 37796-7) HEMATOCRIT; Normal (test 39.4 % 35.0-45.0 N code = 4544-3) MCV; Normal (test code = 85.7 fL 80.0-100.0 N 787-2) MCHC; Normal (test code = 34.0 g/dl 32.0-36.0 N 85371-3) RDW; Normal (test code = 13.9 % 11.0-15.0 N 788-0) PLATELET COUNT; Normal 345 {Thousand/u} 140-400 N (test code = 777-3) MPV; Normal (test code = 10.3 fL 7.5-12.5 N 51579-3) ABSOLUTE NEUTROPHILS (test 4490 {cells/uL} 6923-7406 N code = ABSOLUTE NEUTROPHILS) ABSOLUTE LYMPHOCYTES (test 2212 {cells/uL} 850-3900 N code = ABSOLUTE LYMPHOCYTES) ABSOLUTE MONOCYTES (test 409 {cells/uL} 200-950 N code = ABSOLUTE MONOCYTES) ABSOLUTE EOSINOPHILS (test 139 {cells/uL} 15-500 N code = ABSOLUTE EOSINOPHILS) ABSOLUTE BASOPHILS (test 51 {cells/uL} 0-200 N code = ABSOLUTE BASOPHILS) NEUTROPHILS (test code = 61.5 % N NEUTROPHILS) LYMPHOCYTES (test code = 30.3 % N LYMPHOCYTES) MONOCYTES; Normal (test 5.6 % N code = 98385-5) EOSINOPHILS; Normal (test 1.9 % N code = 60832-2) BASOPHILS; Normal (test 0.7 % N code = 64476-9) [facility]] REFLEXIVE URINE [id number] 08:26:00 Test Item Value Reference Range Interpretation Comments REFLEXIVE URINE CULTURE NO CULTURE INDICATED (test code = REFLEXIVE URINE CULTURE) [facility]] TSH, 3RD GENERATION W/REFLEX TO [id number] 08:26:00 Test Item Value Reference Range Interpretation Comments TSH, 3RD GENERATION 1.64 {MIU/L} N Referenc e Range > or W/REFLEX TO FT4 (test = 20 Y ears 0.40-4.50 code = TSH, 3RD Ra nges GENERATION W/REFLEX First tr imester TO FT4) 0.26-2.66 Secon d trimester 0.55- 2.73 Third trimester 0.43-2.91 [facility]
[2022-11-11 16:39] LABS: Urine Blood Negative (Negative); Urine Glucose Negative (Negative); Urine Protein 3+ (Negative); Urine Specific Gravity >=1.030 (1.005-1.030)
[2022-11-11 16:42] LABS: Absolute Lymphocytes (CBC) 1.4 K/uL (0.7-4.9); Lymphocytes % 27.5 % (15.3-44.8); MCV 92.7 fL (80-100); MPV 7.6 fL (7.6-11.3); RBC Red Blood Cell Count 3.67 M/uL (3.86-4.86)
[2022-11-11 16:53] LABS: Protime INR 1.01
[2022-11-11 16:58] LABS: Barbiturates NEGATIVE (NEGATIVE); Benzodiazepines NEGATIVE (NEGATIVE); Cocaine NEGATIVE (NEGATIVE); METHAMPHETAM NEGATIVE (NEGATIVE); Methadone NEGATIVE (NEGATIVE); Opiates NEGATIVE (NEGATIVE); Phencyclidine NEGATIVE (NEGATIVE); THC Cannibis NEGATIVE (NEGATIVE)
[2022-11-11 17:01] LABS: ALT/SGPT 33 U/L (13-56); AST/SGOT 50 U/L (15-37); Albumin 3.2 g/dL (3.4-5.0); Alkaline Phosphatase 102 U/L (45-117); BUN Blood Urea Nitrogen 5 mg/dL (7-18); Bicarbonate 24 mmol/L (21-32); Bilirubin Direct 0.3 mg/dL (0-0.2); Bilirubin Total 0.6 mg/dL (0.2-1.0); Glomerular Filtration Rate 90 ml/min (=/>90); Glucose Level 113 mg/dL (74-106); Potassium 3.1 mmol/L (3.5-5.1); Protein, Total 7.1 g/dL (6.4-8.2); Sodium Level 143 mmol/L (136-145)
[2022-11-11] MEDS ORDERED: NA CHLORIDE 0.9% 1,000 ML ONE (17:18)
--- NOTE | 2022-11-11 17:42 | RAD REPORT ---
EXAM DESCRIPTION: CT - Head Brain Wo Cont - 11/11/2022 5:35 pm CLINICAL HISTORY: seizure COMPARISON: No comparisons TECHNIQUE: All CT scans are performed using dose optimization technique as appropriate and may inclu de automated exposure control or mA/KV adjustment according to patient size. FINDINGS: No intracranial hemorrhage, hydrocephalus or extra-axial fluid collection.No areas of brai n edema or evidence of midline shift. Age advanced cerebral atrophy Mucous retention cyst right maxillary sinus. The calvarium is intact. IMPRESSION: No acute intracranial abnormality.
[2022-11-11] MEDS ORDERED: POTASSIUM 25 MEQ EFFERV TAB ONE (17:47)
--- NOTE | 2022-11-11 17:49 | ER ---
Nurse's Notes [facility] Name: Soni Garrison Age: 37 yrs Sex: Female : 1985 Arrival Date: 11/11/2022 Time: 15:52 Bed 6 Private MD: Diagnosis: Hypokalemia;Other seizures Presentation: 11/11 15:52 Chief complaint: EMS states: SENT FROM [facility] FOR DIZZINESS. Coronavirus screen: bp At this time, the client does not indicate any symptoms associated with coronavirus-19. Ebola Screen: No symptoms or risks identified at this time. Initial Sepsis Screen: Does the patient meet any 2 criteria? No. Patient's initial sepsis screen is negative. Does the patient have a suspected source of infection? No. Patient's initial sepsis screen is negative. Risk Assessment: Do you want to hurt yourself or someone else? Patient reports no desire to harm self or others. Onset of symptoms was November 11, 2022 at 15:00. Care prior to arrival: Glucose check: 145. 15:52 Method Of Arrival: EMS: [email or web address] bp 15:52 Acuity: CHAVEZ 3 bp Triage Assessment: 15:54 General: Appears in no apparent distress. comfortable, Behavior is cooperative, bp appropriate for age, anxious. Pain: Denies pain. EENT: No deficits noted. Neuro: Reports dizziness. Cardiovascular: Rhythm is sinus rhythm. Respiratory: No deficits noted. GI: No signs and/or symptoms were reported involving the gastrointestinal system. : No signs and/or symptoms were reported regarding the genitourinary system. Derm: No deficits noted. Musculoskeletal: No deficits noted. 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 - Social history:: Smoking status: unknown. Screenin:55 [facility] ED Fall Risk Assessment (Adult) History of falling in the last 3 months, bp including since admission No falls in past 3 months (0 pts). Abuse screen: Denies threats or abuse. Denies injuries from another. Nutritional screening: No deficits noted. Tuberculosis screening: No symptoms or risk factors identified. Assessment: 15:55 General: SEE TRIAGE NOTE. bp 17:48 Reassessment: Patient appears in no apparent distress at this time. Patient and/or db family updated on plan of care and expected duration. Pain level reassessed. Patient is alert, oriented x 3, equal unlabored respirations, skin warm/dry/pink. patient given Potassium. Given orange juice with medication. Neuro: Level of Consciousness is awake, alert, obeys commands, Oriented to person, place, time, situation, Reports dizziness. Cardiovascular: No deficits noted. Denies chest pain. Respiratory: No deficits noted. Airway is patent Respiratory effort is even, unlabored, Respiratory pattern is regular, symmetrical. GI: No deficits noted. No signs and/or symptoms were reported involving the gastrointestinal system. Abdomen is flat. : No deficits noted. No signs and/or symptoms were reported regarding the genitourinary system. 18:13 Reassessment: patient pending IV fluids to finish. db 18:40 Reassessment: Patient appears in no apparent distress at this time. Patient and/or db family updated on plan of care and expected duration. Pain level reassessed. Patient is alert, oriented x 3, equal unlabored respirations, skin warm/dry/pink. spouse is at bedside Patient states feeling better. Patient states symptoms have improved. Vital Signs: 15:52 BP 138 / 82; Pulse 100; Resp 18; Temp 98.4; Pulse Ox 100% ; bp 17:15 BP 128 / 85 Supine; Pulse 57; bp 17:20 BP 121 / 79 Standing; Pulse 61; bp 17:45 BP 130 / 87; Pulse 71; Resp 16; Pulse Ox 99% on R/A; db 18:00 BP 131 / 94; Pulse 68; Resp 18; Pulse Ox 100% on R/A; db ED Course: 15:52 Patient arrived in ED. bp 15:52 Elian Ro PA is PHCP. cp 15:53 Andres Kelsey MD is Attending Physician. cp 15:53 Triage completed. bp 15:54 Arm band placed on. bp 15:55 Bed in low position. Call light in reach. Side rails up X2. Adult w/ patient. bp 16:17 Herminio Sanchez, RN is Primary Nurse. bp 16:41 Acetaminophen Sent. bc6 16:41 Basic Metabolic Panel Sent. bc6 16:41 CBC with Diff Sent. bc6 16:41 ETOH Level Sent. bc6 16:41 Hepatic Function Sent. bc6 16:41 PT-INR Sent. bc6 16:41 Ptt, Activated Sent. bc6 16:41 Salicylate Sent. bc6 16:41 Urine Drug Screen Sent. bc6 16:41 Initial lab(s) drawn, by ms, sent to lab. Urine collected: clean catch specimen. bc6 Inserted saline lock: 20 gauge in right antecubital area, using aseptic technique. 17:00 Herminio Sanchez, RN is Primary Nurse. bp 17:36 CT Head Brain wo Cont In Process Unspecified. EDMS 17:45 Pulse ox on. NIBP on. Warm blanket given. db 17:45 No provider procedures requiring assistance completed. db 18:41 IV discontinued, intact, bleeding controlled, No redness/swelling at site. db Administered Medications: 17:26 Drug: NS 0.9% 1000 ml Route: IV; Rate: 1 bolus; Site: right antecubital; bp 18:42 Follow up: Response: No adverse reaction; IV Status: Completed infusion; IV Intake: db 1000ml 17:48 Drug: Potassium Effervescent Tablet 50 mEq Route: PO; db 18:42 Follow up: Response: No adverse reaction db Medication: 17:48 VIS not applicable for this client. db Intake: 18:42 IV: 1000ml; Total: 1000ml. db Outcome: 17:48 Discharge ordered by . cp 18:41 Discharged to home ambulatory. db 18:41 Condition: stable 18:41 Discharge instructions given to patient, Instructed on discharge instructions, follow up and referral plans. Prescriptions given X 1. 18:42 Patient left the ED. db Signatures: Dispatcher [employer] EDMS Elian Ro PA PA cp Peltier, Brian, RN RN Nayeli Barreto, RN RN db Aide Taylor bc6
--- NOTE | 2022-11-11 17:49 | EDPHYS ---
Physician Documentation [facility] Name: Soni Garrison Age: 37 yrs Sex: Female : 1985 Arrival Date: 11/11/2022 Time: 15:52 Bed 6 Private MD: ED Physician Andres Kelsey HPI: 11/11 16:10 This 37 yrs old Female presents to ER via EMS with complaints of Dizziness. cp 16:10 The patient presents after having a single isolated seizure, that lasted an unknown cp period of time, the episode(s) was witnessed. Character of seizure(s): Loss of consciousness: the patient experienced loss of consciousness, brief, Motor activity: generalized, shaking all over, Incontinence: none. Seizure onset: just prior to arrival. Context: occurred [facility], occurred while the patient was walking to room from bathroom. Contributing factors: reports not sleeping well last night. Seizure Hx: the patient has no previous seizure history. Associated injury: The patient did not suffer any apparent associated injury. 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 - Social history:: Smoking status: unknown. ROS: 16:15 Constitutional: Negative for body aches, chills, fever, poor PO intake. cp 16:15 Eyes: Negative for injury, pain, redness, and discharge. cp 16:15 ENT: Negative for drainage from ear(s), ear pain, sore throat, difficulty swallowing, difficulty handling secretions. 16:15 Cardiovascular: Negative for chest pain, palpitations. 16:15 Respiratory: Negative for cough, shortness of breath, wheezing. 16:15 Abdomen/GI: Positive for nausea, Negative for abdominal pain, vomiting, diarrhea, constipation. 16:15 Skin: Negative for rash. 16:15 Neuro: Positive for dizziness, Negative for altered mental status, headache, weakness. 16:15 All other systems are negative. Exam: 16:20 Constitutional: The patient appears in no acute distress, alert, awake, non-toxic, well cp developed, well nourished. 16:20 Head/Face: Normocephalic, atraumatic. cp 16:20 Eyes: Periorbital structures: appear normal, Pupils: equal, round, and reactive to light and accomodation, Extraocular movements: intact throughout, Conjunctiva: normal, no exudate, no injection, Sclera: no appreciated abnormality, Lids and lashes: appear normal, bilaterally. 16:20 ENT: External ear(s): are unremarkable, Ear canal(s): are normal, clear, TM's: dullness, bilaterally, Nose: is normal, Mouth: Lips: moist, Oral mucosa: pink and intact, moist, Posterior pharynx: Airway: no evidence of obstruction, patent, swelling, is not appreciated, erythema, is not appreciated, exudate, is not appreciated. 16:20 Neck: ROM/movement: is normal, is supple, without pain, no range of motions limitations, no nuchal rigidity. 16:20 Chest/axilla: Inspection: normal. 16:20 Cardiovascular: Rate: tachycardic, Rhythm: regular. 16:20 Respiratory: the patient does not display signs of respiratory distress, Respirations: normal, no use of accessory muscles, no retractions, labored breathing, is not present, Breath sounds: are clear throughout, no decreased breath sounds, no stridor, no wheezing. 16:20 Abdomen/GI: Inspection: abdomen appears normal, Palpation: abdomen is soft and non-tender, in all quadrants. 16:20 Back: pain, is absent, ROM is normal. 16:20 Neuro: Orientation: to person, place \T\ time. Mentation: is normal, Cerebellar function: is grossly normal, Motor: moves all fours, strength is normal, Sensation: is normal. 17:35 ECG was reviewed by the Attending Physician. cp Vital Signs: 15:52 BP 138 / 82; Pulse 100; Resp 18; Temp 98.4; Pulse Ox 100% ; bp 17:15 BP 128 / 85 Supine; Pulse 57; bp 17:20 BP 121 / 79 Standing; Pulse 61; bp 17:45 BP 130 / 87; Pulse 71; Resp 16; Pulse Ox 99% on R/A; db 18:00 BP 131 / 94; Pulse 68; Resp 18; Pulse Ox 100% on R/A; db MDM: 15:54 Patient medically screened. cp 17:47 Data reviewed: vital signs, nurses notes, lab test result(s), EKG, radiologic studies, cp CT scan. 17:47 Consideration of Admission/Observation Escalation of care including cp admission/observation considered. Test considered but Not performed: Other Details MRI brain. Counseling: I had a detailed discussion with the patient and/or guardian regarding: the historical points, exam findings, and any diagnostic results supporting the discharge/admit diagnosis, lab results, radiology results, the need for outpatient follow up, a family practitioner, to return to the emergency department if symptoms worsen or persist or if there are any questions or concerns that arise at home. Response to treatment: the patient's symptoms have markedly improved after treatment, and as a result, I will discharge patient. 11/11 16:09 Order name: Acetaminophen; Complete Time: 17:25 cp 11/11 16: Order name: Basic Metabolic Panel; Complete Time: 17:25 cp 11/11 17:25 Interpretation: Normal except: K 3.1; CL 109; GLUC 113; BUN 5; CA 8.3. cp 11/11 16: Order name: CBC with Diff; Complete Time: 17:25 cp 11/11 17:26 Interpretation: Normal except: RBC 3.67; HGB 11.3; HCT 34.0; RDW 16.8. cp 11/11 16:09 Order name: ETOH Level; Complete Time: 17:25 cp 11/11 16:09 Order name: Hepatic Function; Complete Time: 17:25 cp 11/11 17:26 Interpretation: Normal except: AST 50; BILID 0.3; ALB 3.2; GLOB 3.9; A/G 0.8. cp 11/11 16: Order name: PT-INR; Complete Time: 17:25 cp 11/11 16:09 Order name: CT Head Brain wo Cont; Complete Time: 17:43 cp 11/11 17:43 Interpretation: Report reviewed. cp 11/11 16: Order name: Ptt, Activated; Complete Time: 17:25 cp 11/11 16:09 Order name: Salicylate; Complete Time: 17:25 cp 11/11 16:09 Order name: Urine Drug Screen; Complete Time: 17:25 cp 11/11 17:26 Interpretation: Reviewed. cp 11/11 16:39 Order name: Urine Dipstick-Ancillary; Complete Time: 17:25 EDMS 11/11 16:59 Order name: Urine --Ancillary (enter results); Complete Time: 17:25 eb 11/11 16:09 Order name: EKG; Complete Time: 16:10 cp 11/11 16:09 Order name: EKG - Nurse/Tech; Complete Time: 17:30 cp 11/11 16:09 Order name: IV Saline Lock; Complete Time: 16:40 cp 11/11 16:09 Order name: Labs collected and sent; Complete Time: 16:40 cp 11/11 16:09 Order name: Urine Dipstick-Ancillary (obtain specimen); Complete Time: 16:40 cp 11/11 16:09 Order name: Urine Test (obtain specimen); Complete Time: 16:40 cp 11/11 16:09 Order name: Orthostatics; Complete Time: 17:26 cp EC:35 Rate is 60 beats/min. Rhythm is regular. OR interval is normal at 100 msec. QRS cp interval is normal. QT interval is normal. T waves are Inverted in lead aVR. Interpreted by me. Reviewed by me. Administered Medications: 17:26 Drug: NS 0.9% 1000 ml Route: IV; Rate: 1 bolus; Site: right antecubital; bp 18:42 Follow up: Response: No adverse reaction; IV Status: Completed infusion; IV Intake: db 1000ml 17:48 Drug: Potassium Effervescent Tablet 50 mEq Route: PO; db 18:42 Follow up: Response: No adverse reaction db Disposition: 11/12 13:32 Co-signature as Attending Physician, Andres Kelsey MD. rn Disposition Summary: 11/11/22 17:48 Discharge Ordered Location: Home cp Problem: new cp Symptoms: are resolved cp Condition: Stable cp Diagnosis - Hypokalemia cp - Other seizures cp Followup: cp - With: Private Physician - When: 2 - 3 days - Reason: Recheck today's complaints Discharge Instructions: - Discharge Summary Sheet cp - Potassium Content of Foods cp - Seizure, Adult cp - Hypokalemia cp Forms: - Medication Reconciliation Form cp - Thank You Letter cp - Antibiotic Education cp - Prescription Opioid Use cp - Work release form eb Prescriptions: - Potassium Chloride 10 mEq Oral capsule, extended release - take 2 tablet by ORAL route once daily; 4 tablet; Refills: 0, Product Selection cp Permitted Signatures: Dispatcher [employer] Andres Zuniga MD MD rn Elian Ro PA PA cp Herminio Sanchez RN RN bp Nayeli Odonnell RN RN db Corrections: (The following items were deleted from the chart) 11/11 16:14 16:08 This 37 yrs old Female presents to ER via EMS with complaints of Dizziness. cp cp 17:01 16:09 Suicide Screening ([place]) ordered. cp bp
[2022-11-11 21:10] VITALS: TEMP 98.4
[2022-11-11 21:15] VITALS: BP 131/94; O2SAT 100
--- NOTE | 2022-11-13 16:54 | EKG ---
Test Date: 2022-11-11 Test Time: 17:27:12 Operations Research Manager: XIMENA MEASUREMENT RESULTS: Intervals: Rate: 60 IL: 100 QRSD: 72 QT: 436 QTc: 436 [place]: P: 32 IL: 100 QRS: 48 T: 47 INTERPRETIVE STATEMENTS: Sinus rhythm with short [place] Otherwise normal ECG No previous ECG available for comparison Electronically Signed On 11-13-22 16:51:40 LABEL FOLDER by [place]
== END 2022-11-11 18:42 | disposition home or self-care (01) ==
LOC: ER 15:51
DX: R56.9 Unspecified convulsions (principal); E87.6 Hypokalemia; F32.A Depression, unspecified
CPT/HCPCS: 93005; 85025; 80048; 36415; 81025; 85610; 80076; 85730; 81003; 80307; 70450; 96360; 99285; J7030; G0480 ×3